=== PATIENT | female | born 1955 | race Caucasian/White ===

== ENCOUNTER 2018-03-16 02:02 | Outpatient (CLI) | payer BC, SELFPAY ==
[2018-03-16 10:19] LABS: Hemoglobin A1C 8.3 % (4.5-6.2)
== END 2018-03-16 02:22 ==
PROVIDERS: PCP Family Medicine; Visit Provider Family Medicine
DX: E11.65 Type 2 diabetes mellitus with hyperglycemia (principal)
CPT/HCPCS: 36415; 83036

== ENCOUNTER 2018-06-13 05:17 | Outpatient (CLI) | payer BC, SELFPAY ==
[2018-06-13 08:58] LABS: Hemoglobin A1C 8.1 % (4.5-6.2)
== END 2018-06-13 05:37 ==
PROVIDERS: PCP Family Medicine; Visit Provider Family Medicine
DX: E11.9 Type 2 diabetes mellitus without complications (principal)
CPT/HCPCS: 36415; 83036

== ENCOUNTER 2018-07-18 13:51 | Emergency (ER) | payer BC, SELFPAY ==
[2018-07-18 14:00] VITALS: BP 165/75; PULSE 74; RESP 16; TEMP 37; O2SAT 100
[2018-07-18] MEDS: Normal Saline 1,000 ML 1000 ML IV (14:20)
[2018-07-18 14:38] LABS: Abs Immature Grans 0.02 k/cumm (0.0-0.09); Absolute Basophil Count 0.03 k/cumm (0.0-0.2); Absolute Lymphocyte Count 1.35 k/cumm (1.2-3.4); Absolute Monocyte Count 0.32 k/cumm (0.11-0.7); Absolute Neutrophil Count 7.22 k/cumm (1.2-6.7); Basophils % 0.3; Eosinophils % 1.1; HCT 40.6 % (36.0-46.0); HGB 13.8 g/dL (12.0-15.5); Immature Grans % 0.2; Lymphocytes % 14.9; Mean Corpuscular Hemoglobin 29.3 pg (27.0-33.0); Mean Corpuscular Volume 86.2 fL (80-95); Mean Platelet Volume 10.6 fL (8.0-11.0); Monocytes % 3.5; Platelet Count 265 x1000/uL (130-400); RBC 4.71 m/cumm (4.00-5.20); RBC Distribution Width 12.7 % (11.7-14.6); White Blood Cell Count 9.04 k/cumm (4.4-10.8)
[2018-07-18 14:45] LABS: ALT 30 U/L (12-78); AST 19 U/L (15-37); Albumin 4.1 g/dL (3.4-5.0); Alkaline Phosphatase 112 U/L (46-116); Anion Gap 10.1 mmol/L (3-11); BUN 18 mg/dL (7-18); Bilirubin, Total 0.3 mg/dL (0.2-1.0); CO2 29.9 mmol/L (21.0-32.0); CREATININE 1.16 mg/dL (0.55-1.02); Calcium 9.6 mg/dL (8.5-10.1); Chloride 104 mmol/L (98-107); Estimated GFR 47.03 (mL/min/1.73m2); Glucose 143 mg/dL (70-100); Potassium 3.1 mmol/L (3.5-5.1); Sodium 144 mmol/L (136-145); Total Protein 8.1 g/dL (6.4-8.2)
[2018-07-18] MEDS: Ondansetron 4 MG/2 ML VIAL IVP (14:54)
[2018-07-18] MEDS: Potassium Chloride 20 MEQ TABCR 40 MEQ PO (15:19)
[2018-07-18 15:25] LABS: Lipase 187 U/L (73-393)
--- NOTE | 2018-07-18 16:00 | ED.GENADUL_ITS ---
Discharge Plan Disposition Patient Disposition: HOME Condition: Good Discharge Details Chief Complaint: Nausea/Vomit/Diar Clinical Impression: Gastroenteritis, Nausea & vomiting, Acute hypokalemia Primary Care Provider: Beatrice Richards ED Provider: Justin Colon Home Meds and New Rx's Prescriptions: New potassium chloride 20 mEq tablet extended release 20 meq PO DAILY Qty: 5 RF: 0 metoclopramide HCl 5 mg tablet 5 mg PO ONCE Qty: 5 RF: 0 No Action acetaminophen [Tylenol Extra Strength] 500 MG tablet 500 mg PO DAILY RF: 0 glimepiride [Amaryl] 2 MG tablet 1 - 2 tab PO BID Qty: 90 RF: 11 metformin 1,000 MG tablet 1,000 mg PO BID Qty: 60 RF: 11 losartan-hydrochlorothiazide 1 EACH tablet 1 tab-cap PO DAILY Qty: 30 RF: 11 atorvastatin 40 MG tablet 40 mg PO HS Qty: 30 RF: 11 blood sugar diagnostic [Blood Glucose Test] 1 EACH strip 1 ea Miscellaneous BID Qty: 100 RF: 6 lancets 1 EACH misc 1 ea Miscellaneous BID Qty: 100 RF: 11 omeprazole 20 MG capsule,delayed release(DR/EC) 20 mg PO QAM Qty: 30 RF: 11 donepezil 5 MG tablet 5 mg PO DAILY RF: 0 mometasone [Nasonex] 17 GM spray,non-aerosol 2 spray NS DAILY Qty: 1 RF: 0 prochlorperazine maleate [Compazine] 10 MG tablet 10 mg PO Q8H PRN (Reason: Nausea / Vomiting) Qty: 8 RF: 0 lisinopril 2.5 MG tablet 1 tab PO DAILY RF: 0 Centrum Silver Women 1 EACH tablet 1 tab PO DAILY RF: 0 Discharge Instructions Instructions: Hypokalemia (ED), Acute Nausea and Vomiting (ED) Additional Instructions: Please take the Zofran as needed. Please drink 10-12 cups of water per day. If you notice any worsening of your symptoms, or any new symptoms such as worsening or persist vomiting, abdominal pain, blood in your vomit, diarrhea, fever, chills, shortness of breath, chest pain, numbness, weakness, or fainting , please return immediately to the emergency department for reevaluation. Please follow up with your primary care provider as soon as possible for reassessment and reevaluation. As always, it was a pleasure participating in your medical care today. Referrals: Beatrice Richards [Primary Care Provider] - Discharge Data Discharge Date/Time-TO BE ENTERED AT DEPARTURE: 07/18/18 16:48 Medical Decision Making This is a pleasant 62-year-old female who presents with signs and symptoms clinically consistent with viral gastroenteritis. She has had 8 episodes of vomiting since this morning. She has had no associated red flags of abdominal pain, tenderness, or hematemesis or diarrhea. No recent antibiotic use. She does have sick contacts with similar symptoms. Physical exam is reassuring with no signs of an acute surgical abdomen. Laboratory workup demonstrates no white count or bandemia, electrolytes demonstrate a slightly low potassium at 3.1. No other significant abnormalities, lipase is normal. The patient was rehydrated with a liter of normal saline, she was given Zofran and she tolerated this well. Patient has been able to tolerate p.o. fluids since then, and has had a resolution of her symptoms and is feeling much better. I did discuss further imaging, as well as the low likelihood for any acute process in the abdomen the patient does not want any additional imaging at this time. Patient is requesting discharge home. Feel this appropriate at this time with a reassuring laboratory workup, reassuring vital signs and a benign exam showing no acute process. Patient will be discharged home with Reglan secondary to her QT of 450. We discussed red flags for which to return, the importance of close follow-up, and the importance of return if she has any abdominal pain, worsening of her symptoms, or signs of dehydration. I have extensively reviewed the treatment plan and discharge instructions with the patient and their family. I have addressed all patient concerns at this time. The patient and family was made aware of what symptoms to monitor for that would warrant a return to the emergency department. Discussed the plan with the patient and family, they demonstrate verbal understanding and agreement with our assessment and plan at this time. HPI General Date/Time Provider Initiated Documentation: 07/18/18 14:38 . HPI Narrative: This is a 62-year-old female with no significant past medical history except for diabetes who presents today for vomiting. Vomiting began this morning. She has had 8 episodes. Is not directly correlated with food. She is able to keep some fluids down. She denies any significant diarrhea, hematochezia, melena, acholic stool or hematemesis. She denies any abdominal pain, abdominal cramping. She does admit to other sick contacts with similar symptoms. Patient denies any previous abdominal surgeries. She has no other complaints at this time. No other modifying factors. Related Data Home Medications Medication Instructions Recorded Confirmed acetaminophen [Tylenol Extra 500 mg PO DAILY 09/16/12 07/18/18 Strength] glimepiride [Amaryl] 1 - 2 tab PO BID #90 tab 04/18/15 07/18/18 losartan-hydrochlorothiazide 1 tab-cap PO DAILY #30 tab-cap 09/23/15 07/18/18 metformin 1,000 mg PO BID #60 tab-cap 09/23/15 07/18/18 atorvastatin 40 mg PO HS #30 tab-cap 10/10/15 07/18/18 blood sugar diagnostic [Blood #100 strip 10/10/15 Glucose Test] lancets #100 ea 10/10/15 omeprazole 20 mg PO QAM #30 tab-cap 10/10/15 07/18/18 donepezil 5 mg PO DAILY 08/22/17 07/18/18 mometasone [Nasonex] 2 spray NS DAILY #1 bottle 08/22/17 07/18/18 prochlorperazine maleate 10 mg PO Q8H PRN #8 tablet 08/27/17 07/18/18 [Compazine] lisinopril 1 tab PO DAILY 09/13/17 07/18/18 nkdownou-see-alnq-FA-lutein 1 tab PO DAILY 09/13/17 07/18/18 [Centrum Silver Women Tablet] metoclopramide HCl 5 mg PO ONCE #5 tab 07/18/18 potassium chloride 20 meq PO DAILY #5 tab 07/18/18 Previous Rx's Medication Instructions Recorded mometasone [Nasonex] 2 spray NS DAILY #1 bottle 08/22/17 prochlorperazine maleate 10 mg PO Q8H PRN #8 tablet 08/27/17 [Compazine] metoclopramide HCl 5 mg PO ONCE #5 tab 07/18/18 potassium chloride 20 meq PO DAILY #5 tab 07/18/18 Allergies Allergy/AdvReac Type Severity Reaction Status Date / Time apple Allergy Severe Anaphylaxsi Unverified 07/18/18 14:02 s lisinopril AdvReac cough Unverified 07/18/18 14:02 General Stated Complaint: Nausea/Vomit/Diar VENECIA: 3 Review of Systems Review of Systems All systems reviewed & are unremarkable except as noted in HPI and below PFSH Surgical History Dilation and curettage (~09/2009) Extraction of cataract (~04/2007) Family History Mother Diabetes Essential hypertension Personal history of malignant neoplasm Heart disease Hyperlipidemia Stroke Father Diabetes Essential hypertension Hyperlipidemia Stroke Sister Diabetes Essential hypertension Heart disease Hyperlipidemia Sister Essential hypertension Hyperlipidemia Grandfather Personal history of malignant neoplasm Heart disease Grandfather Essential hypertension Heart disease Hyperlipidemia Grandmother Diabetes Essential hypertension Hyperlipidemia Grandmother Diabetes Essential hypertension Personal history of malignant neoplasm Hyperlipidemia Social History Smoking/Tobacco Use Status: Never History History Para 2 Hx # Term Pregnancies Multiple births Hx # Pregnancies Ectopic pregnancies AB induced Hx Number of Living Children AB spontaneous Exam Narrative Exam Narrative: 1.Const: Well-nourished, Well-developed, appearing stated age 2.Eyes: PERRL, no conjunctival injection, and symmetrical lids. 3.ENT: Atraumatic external nose and ears. Dry MM. Neck: Symmetric, trachea midline, No thyromegaly. 4.CVS: +S1/S2, No murmurs or gallops. Peripheral pulses 2+ and equal in all extremities. Brisk capillary refill in all extremities. 5.RESP: Unlabored respiratory effort. Clear to auscultation bilaterally. No wheezes rales or rhonchi 6.GI: Soft, Nontender/Nondistended, No hepatosplenomegaly. No guarding or rebound. No pain at McBurney's point, negative Peterson sign. No flank tenderness. 7.MSK: Normocephalic/Atraumatic, Extremities w/o deformity or ttp No cyanosis or clubbing, Normal movement of all extremities 8.Skin: Warm, Dry. No rashes or lesions. 9.Neuro: shank paperer II-XII grossly intact. Sensation grossly intact, no focal neurologic deficits. 10.Psych: (AAO) x3. Appropriate mood and affect Course Vital Signs Temperature 37 C 07/18/18 14:00 Pulse 74 07/18/18 14:00 Respiratory Rate 16 07/18/18 14:00 Blood Pressure 165/75 H 07/18/18 14:00 Pulse Oximetry 100 07/18/18 14:00 Temperature 37 C 07/18/18 14:00 Temperature Source Skin 07/18/18 14:00 Pulse 74 07/18/18 14:00 Respiratory Rate 16 07/18/18 14:00 Respiratory Effort Non-Labored 07/18/18 14:00 Blood Pressure 165/75 H 07/18/18 14:00 Blood Pressure Position Sitting 07/18/18 14:00 Pulse Oximetry 100 07/18/18 14:00 Oxygen Delivery Method Room Air 07/18/18 14:00 Oxygen Flow Rate 0 07/18/18 14:00 Pain Level 0 07/18/18 14:00 Lab/Test Results Lab/Test Results: Laboratory Tests Range/Units 07/18/18 07/18/18 07/18/18 14:20 14:20 14:20 WBC (4.4-10.8) k/cumm 9.04 RBC (4.00-5.20) m/cumm 4.71 Hgb (12.0-15.5) g/dL 13.8 Hct (36.0-46.0) % 40.6 MCV (80-95) fL 86.2 MCH (27.0-33.0) pg 29.3 MCHC (32.0-36.0) g/dL 34.0 RDW (11.7-14.6) % 12.7 Plt Count (130-400) x1000/uL 265 MPV (8.0-11.0) fL 10.6 Immature Gran % 0.2 Neutrophils % 80.0 Lymphocytes % 14.9 Monocytes % 3.5 Eosinophils % 1.1 Basophils % 0.3 Absolute Neutrophils (1.2-6.7) k/cumm 7.22 H Absolute Lymphocytes (1.2-3.4) k/cumm 1.35 Absolute Monocytes (0.11-0.7) k/cumm 0.32 Absolute Eosinophils (0.0-0.7) k/cumm 0.10 Absolute Basophils (0.0-0.2) k/cumm 0.03 Sodium (136-145) mmol/L 144 Potassium (3.5-5.1) mmol/L 3.1 L Chloride (98-107) mmol/L 104 Carbon Dioxide (21.0-32.0) mmol/L 29.9 Anion Gap (3-11) mmol/L 10.1 BUN (7-18) mg/dL 18 Creatinine (0.55-1.02) mg/dL 1.16 H Estimated GFR/1.73 m2 (mL/min/1.73m2) 47.03 Glucose (70-100) mg/dL 143 H Calcium (8.5-10.1) mg/dL 9.6 Total Bilirubin (0.2-1.0) mg/dL 0.3 AST (15-37) U/L 19 ALT (12-78) U/L 30 Alkaline Phosphatase (46-116) U/L 112 Total Protein (6.4-8.2) g/dL 8.1 Albumin (3.4-5.0) g/dL 4.1 Lipase (73-393) U/L 187
[2018-07-18] MEDS: Ondansetron O.D.T. 4 MG TABEF PO (16:34)
[2018-07-18 16:48] VITALS: BP 147/74; PULSE 68; RESP 16; TEMP 37; O2SAT 99
== END 2018-07-18 16:48 | disposition home or self-care (01) ==
PROVIDERS: Emergency Provider Student in an Organized Health Care Education/Training Program; PCP Family Medicine
DX: K52.9 Noninfective gastroenteritis and colitis, unspecified (principal); R11.0 Nausea; E87.6 Hypokalemia; I10 Essential (primary) hypertension; E11.9 Type 2 diabetes mellitus without complications; Z79.84 Long term (current) use of oral hypoglycemic drugs
CPT/HCPCS: 36415; 80053; 83690; 96361; 96374; 99284; 85025; J2405

== ENCOUNTER 2018-09-20 01:41 | Outpatient (CLI) | payer BC, SELFPAY ==
--- NOTE | 2018-09-20 13:38 | DI.MAMMO_ITS ---
SYMPTOMS/DIAGNOSIS: SCREENING, Z12.31, GENERAL MEDICAL EXAM, Z00.00 MAMMOGRAMS: Mammograms were interpreted according to the usual protocol including computer analysis with CAD system, tomosynthesis and C view imaging. Comparison is with the prior examinations. No suspicious masses or microcalcifications are seen. There is no definite evidence of malignancy. IMPRESSION: Negative mammogram. Routine screening is recommended. Category 1, breast density A. MQSA ASSESSMENT OF FINDINGS: Negative. Category 1. Patient will receive a letter notifying them of these results. BI-RAD category A. The breasts are almost entirely fatty.
== END 2018-09-20 02:01 ==
PROVIDERS: PCP Family Medicine; Visit Provider Family Medicine
DX: Z00.00 Encounter for general adult medical examination without abnormal findings (principal); Z12.31 Encounter for screening mammogram for malignant neoplasm of breast
CPT/HCPCS: 77063; 77067

== ENCOUNTER 2018-12-16 03:03 | Outpatient (CLI) | payer OTHER, SELFPAY ==
[2018-12-16 10:40] LABS: Hemoglobin A1C 7.7 % (4.5-6.2)
[2018-12-16 11:24] LABS: ALT 29 U/L (12-78)
== END 2018-12-16 03:23 ==
PROVIDERS: PCP Family Medicine; Visit Provider Family Medicine
DX: E11.65 Type 2 diabetes mellitus with hyperglycemia (principal); E78.00 Pure hypercholesterolemia, unspecified
CPT/HCPCS: 36415; 83036; 84460

== ENCOUNTER 2019-03-17 03:51 | Outpatient (CLI) | payer OTHER, SELFPAY ==
[2019-03-17 13:06] LABS: Hemoglobin A1C 7.6 % (4.5-6.2)
== END 2019-03-17 04:11 ==
PROVIDERS: PCP Family Medicine; Visit Provider Family Medicine
DX: E53.8 Deficiency of other specified B group vitamins (principal); E11.9 Type 2 diabetes mellitus without complications
CPT/HCPCS: 36415; 83036

== ENCOUNTER 2019-06-28 01:17 | Outpatient (CLI) | payer OTHER, SELFPAY ==
[2019-06-28 08:59] LABS: Absolute Basophil Count 0.04 k/cumm (0.0-0.2); Absolute Eosinophil Count 0.15 k/cumm (0.0-0.7); Absolute Lymphocyte Count 1.53 k/cumm (1.2-3.4); Absolute Monocyte Count 0.37 k/cumm (0.11-0.7); Absolute Neutrophil Count 5.09 k/cumm (1.2-6.7); Basophils % 0.6; Eosinophils % 2.1; HCT 41.2 % (36.0-46.0); HGB 13.5 g/dL (12.0-15.5); Lymphocytes % 21.3; Mean Corp. HGB Concentration 32.8 g/dL (32.0-36.0); Mean Corpuscular Hemoglobin 29.3 pg (27.0-33.0); Mean Corpuscular Volume 89.6 fL (80-95); Mean Platelet Volume 10.4 fL (8.0-11.0); Monocytes % 5.2; Neutrophils % 70.8; Platelet Count 290 x1000/uL (130-400); RBC Distribution Width 13.3 % (11.7-14.6); White Blood Cell Count 7.18 k/cumm (4.4-10.8)
[2019-06-28 09:36] LABS: Hemoglobin A1C 7.7 % (4.5-6.2)
[2019-06-28 10:27] LABS: BUN 24 mg/dL (7-18); CREATININE 1.11 mg/dL (0.55-1.02); Calcium 9.9 mg/dL (8.5-10.1); Chloride 107 mmol/L (98-107); Estimated GFR 49.33 (mL/min/1.73m2); Glucose 92 mg/dL (74-106); Potassium 3.6 mmol/L (3.5-5.1); Sodium 145 mmol/L (136-145)
[2019-06-28 11:42] LABS: Vitamin D 25 Total 37.7 ng/ml (30-100)
[2019-06-28 13:36] LABS: COMMENT (LAB VIEW ONLY) 98.21 mg/dL; Microalb ug/mg Crea 9.3 ug/mg Cr
== END 2019-06-28 01:37 ==
PROVIDERS: PCP Family Medicine; Visit Provider Family Medicine
DX: E11.9 Type 2 diabetes mellitus without complications (principal); I10 Essential (primary) hypertension; E78.00 Pure hypercholesterolemia, unspecified; M85.88 Other specified disorders of bone density and structure, other site
CPT/HCPCS: 36415; 80048; 82306; 82043; 82570; 83036; 85025

== ENCOUNTER 2019-09-07 23:21 | Emergency (ER) | payer OTHER, SELFPAY ==
[2019-09-07 23:24] VITALS: BP 134/66; PULSE 63; RESP 20; TEMP 36.3; O2SAT 100
--- NOTE | 2019-09-07 23:41 | ED.GENADUL_ITS ---
Discharge Plan Disposition Patient Disposition: HOME Condition: Good Discharge Details Chief Complaint: Nausea/Vomit/Diar Clinical Impression: Dehydration Primary Care Provider: Beatrice Richards ED Provider: Ghassan Ambrose Meds and New Rx's Prescriptions: Continued acetaminophen [Tylenol Extra Strength] 500 MG tablet 500 mg PO DAILY RF: 0 atorvastatin 40 MG tablet 20 mg PO HS Qty: 30 RF: 11 (DME) blood sugar diagnostic [Blood Glucose Test] 1 EACH strip 1 ea Miscellaneous BID Qty: 100 RF: 6 (DME) lancets 1 EACH misc 1 ea Miscellaneous BID Qty: 100 RF: 11 donepezil 5 MG tablet 5 mg PO DAILY RF: 0 Centrum Silver Women 1 EACH tablet 1 tab PO DAILY RF: 0 Lantus U-100 Insulin 100 unit/mL Solution 20 unit SUBCUT QAM RF: 0 Discharge Instructions Additional Instructions: You seem to have become a little dehydrated from the colonoscopy prep and the related vomiting. Sugar seems to be fine now. He should be good to report to [facility] in the morning for your procedure. Return to ED for syncope, chest pain, shortness of breath, abdominal pain, other concerns or problems. Referrals: Beatrice Richards [Primary Care Provider] - Medical Decision Making Patient here with weakness and episode of hypoglycemia while doing prep for colonoscopy. Sugar currently up over 150 by fingerstick here. Vitals normal. However, will place an IV and give a liter of fluid with some Zofran and check BMP. Patient blood sugar now 175. She is on Lantus and only takes it in the morning so she should be fine from a glucose standpoint. Potassium a little low and we will replace with 10 mEq IV. She is feeling much better. Her nausea is resolved. She should be okay to go home get some rest and go to [facility] for colonoscopy in the morning. She is not using her Lantus until after the procedure. Patient and comfortable with plan. Lab Data Lab results reviewed: Yes I reviewed the patient's lab results. HPI General Mode of arrival: ambulatory . Date/Time Provider Initiated Documentation: 09/07/19 23:38 . Limitations to Documentation: no limitations . Information obtained by: patient, family and RN notes reviewed . HPI Narrative: Patient here for evaluation after becoming weak and lightheaded with low blood sugar this evening. Patient is a diabetic who is on insulin. She is due for colonoscopy tomorrow morning. She has been doing the prep today and is supposed to be n.p.o. after midnight. She developed some nausea and vomiting in addition to all the liquidy stools she has been having. found her kneeling on the floor over her bed weak with complaints of cramps in her legs. He checked her sugar and it was in the 50s. He gave her some [place] and called EMS. On their arrival she was feeling much better. Her blood sugar was up over 100. She refused transport. However brought her in by private vehicle for evaluation. Related Data Home Medications Medication Instructions Recorded Confirmed acetaminophen [Tylenol Extra 500 mg PO DAILY 09/16/12 07/18/18 Strength] atorvastatin 20 mg PO HS #30 tab-cap 10/10/15 09/07/19 blood sugar diagnostic [Blood #100 strip 10/10/15 Glucose Test] lancets #100 ea 10/10/15 donepezil 5 mg PO DAILY 08/22/17 09/07/19 Centrum Silver Women 1 tab PO DAILY 09/13/17 09/07/19 Lantus U-100 Insulin 20 unit SUBCUT QAM 09/07/19 09/07/19 Allergies Allergy/AdvReac Type Severity Reaction Status Date / Time apple Allergy Severe Anaphylaxsi Unverified 09/07/19 23:39 s lisinopril AdvReac cough Unverified 09/07/19 23:39 General Stated Complaint: Nausea/Vomit/Diar VENECIA: 3 Review of Systems Narrative: As documented in HPI otherwise negative as below. Const: no fever, chills Resp: no cough, SOB, pleuritic pain CV: no CP, diaphoresis, edema, syncope GI: no abdominal pain Neuro: no headache, numbness, focal weakness, confusion [facility] Medical History Essential hypertension (Chronic 05/04/13) Hyperlipidemia (Chronic 09/16/12) Poorly controlled type 2 diabetes mellitus (Chronic) Surgical History Dilation and curettage (~09/2009) Extraction of cataract (~04/2007) Family History Mother Diabetes Essential hypertension Personal history of malignant neoplasm PANCREATIC/SUSPECT COLON Heart disease Hyperlipidemia Stroke Father Diabetes Essential hypertension Hyperlipidemia Stroke Sister Diabetes Essential hypertension Heart disease Hyperlipidemia Sister Essential hypertension Hyperlipidemia Grandfather Personal history of malignant neoplasm LUNG Heart disease Grandfather Essential hypertension Heart disease Hyperlipidemia Grandmother Diabetes Essential hypertension Hyperlipidemia Grandmother Diabetes Essential hypertension Personal history of malignant neoplasm STOMACH? Hyperlipidemia Social History Smoking/Tobacco Use Status: Never Alcohol Intake: never Drug use: Never Do you feel safe in your relationship?: Yes History History Para 2 Hx # Term Pregnancies Multiple births Hx # Pregnancies Ectopic pregnancies AB induced Hx Number of Living Children AB spontaneous Exam Narrative Exam Narrative: Vitals: Afebrile with normal vital signs and room air pulse oximetry. Const: WDWN female in NAD. HEENT: NC/AT. Normal facial exam. Eyes: Normal conjunctiva and sclera. Neck: Supple. Trachea midline. Lungs: Normal respiratory effort. Lungs are clear. Cor: RRR without murmur/gallop. Good radial pulses. GI: Soft. NT/ND. No guarding or rebound. Neuro: A+O x 3. Normal speech, mentation, gait. Cranial nerves II - XII grossly intact. No gross motor or sensory deficit. Ext: No C/C/E. Skin: Warm and dry without rash. Course Vital Signs Vital signs: Vital Signs Temperature 97.3 F L 09/07/19 23:24 Pulse 63 09/07/19 23:24 Respiratory Rate 09/07/19 23:24 Blood Pressure 134/66 09/07/19 23:24 Pulse Oximetry 100 09/07/19 23:24 Temperature 97.3 F L 09/07/19 23:24 Pulse 63 09/07/19 23:24 Respiratory Rate 20 09/07/19 23:24 Respiratory Effort 09/07/19 23:24 Blood Pressure 134/66 09/07/19 23:24 Pulse Oximetry 100 09/07/19 23:24 Oxygen Delivery Method Room Air 09/07/19 23:24 Oxygen Flow Rate 0 09/07/19 23:24 Pain Level 0 09/07/19 23:24
[2019-09-08] MEDS: Lactated Ringers 1,000 ML 1000 ML IV (00:04)
[2019-09-08] MEDS: Ondansetron 4 MG/2 ML VIAL IVP (00:05)
[2019-09-08 00:24] LABS: Anion Gap 14.8 mmol/L (3-11); BUN 16 mg/dL (7-18); CO2 21.2 mmol/L (21.0-32.0); CREATININE 1.33 mg/dL (0.55-1.02); Chloride 101 mmol/L (98-107); Estimated GFR 40.04 (mL/min/1.73m2); Glucose 175 mg/dL (74-106); Potassium 3.2 mmol/L (3.5-5.1); Sodium 137 mmol/L (136-145)
[2019-09-08] MEDS: POTASSIUM CHLORIDE 10 MEQ/100 ML BAG 100 MEQ IVPB (00:38)
[2019-09-08 01:00] VITALS: BP 154/80; PULSE 71; RESP 16; O2SAT 100
[2019-09-08] MEDS: Lactated Ringers 1,000 ML 200 ML IV (01:17)
[2019-09-08 02:00] VITALS: BP 154/80; PULSE 71; RESP 16; O2SAT 100
== END 2019-09-08 01:55 | disposition home or self-care (01) ==
PROVIDERS: Emergency Provider Emergency Medicine; PCP Family Medicine
DX: E86.0 Dehydration (principal); E11.649 Type 2 diabetes mellitus with hypoglycemia without coma; Z79.4 Long term (current) use of insulin; E87.6 Hypokalemia; R42 Dizziness and giddiness; T47.4X5A Adverse effect of other laxatives, initial encounter; I10 Essential (primary) hypertension
CPT/HCPCS: 36415; 36416; 80048; 82962; 96361; 96365; 96375; 99284; J2405; J3480

== ENCOUNTER 2020-04-15 01:46 | Outpatient (CLI) | payer OTHER, SELFPAY ==
--- NOTE | 2020-04-15 10:00 | NS.NUTBLAN_ITS ---
ASSESSMENT: Lala presents for diet education r/t weight loss and some DM edu. Her José Miguel accompanied her to the appt due to her memory loss issues. She is 115lbs at this time w/ reporting UBW of 130lbs w/ ~ 20 lb weight loss in 2 mos. help with diet hx and reviewed typical breakfast , lunch and supper meals w/ this RD. The amounts and types of foods were not meeting her caloric intake needs which are [id number] k/pérez/day to achieve weight gain with goal within 10% UBW. She has dx DM2 and is on insulin. She uses her glucometer with her helping to track sugar levels. Last A1c was 6.8% (02/23/20) with BG 149. states that he does not like cooking but tries to prepare meals the best he can. They go to [employer] restaurant in [place] for meals and was able to recall types of meals Lala typically eats there. INTERVENTION: Worked with Lala and her to calculate nutritional needs for daily k/cals, Pro and fluids. Reviewed CHO counting techniques and demonstrated carbs and cals phone millicent to help with caloric intake and facilitate </= 60g/CHO per meal period to help w/ BG levels. explained concept of pairing Pro w/ CHO to mitigate BG spikes. Discussed food choices and portion sizes. Recommended Glucerna 237 ml BID at 10a and 2p to max intake. Discussed cooking and food purchasing options to help with cooking skills and challenges for who prepares the meals.Explained types of CHO and the role of fiber in diet and DM. José Miguel was very meticulous with his note taking and record keeping and provided good support for Lala during this encounter. He was receptive to increasing his cooking knowledge and accepted the contact info for this RD and other suggestions to help with Lala's weight loss and DM issues. PLAN: José Miguel will reach out by email or phone to this RD with questions r/t meal prep, grocery purchasing and restaurant menu selections. He is going to arrange F/U appt for Lala with this RD for further education and review of her progress. He agreed to arrange an appointment for her in one month.
== END 2020-04-15 02:06 ==
PROVIDERS: PCP Family Medicine; Visit Provider Dietitian, Registered
DX: R63.4 Abnormal weight loss (principal); E11.9 Type 2 diabetes mellitus without complications; Z79.4 Long term (current) use of insulin; Z71.3 Dietary counseling and surveillance
CPT/HCPCS: 97802

== ENCOUNTER 2022-10-21 01:48 | Inpatient (IN) | payer MEDICARE, MEDICAID, SELFPAY ==
[2022-10-21] VITALS (36 sets, daily range): BP systolic 119–169; BP diastolic 50–127; PULSE 72–110; RESP 7–22; TEMP 35.9–38.3; O2SAT 91–98
--- NOTE | 2022-10-21 | DI.MRI_ITS ---
Exam(s) MR BRAIN WO EXAM: MR BRAIN WO CLINICAL HISTORY: acute mental status change TECHNIQUE: Multiplanar multisequence MRI of the brain was performed. Images are degraded by motion artifact on all sequences. COMPARISON: CT CT BRAIN NECK CTA from 10/21/2022 FINDINGS: CEREBRAL PARENCHYMA: There is no evidence of intracranial hemorrhage, mass effect, or shift of midline structures. There are no extra-axial fluid collections. Ventricles are not enlarged or shifted. There is no significant focal signal abnormality in the cerebellar hemispheres nor within the cody, m idbrain, and thalami. There are multiple small FLAIR bright foci of white matter signal abnormality the periventricular whi te matter bilaterally, all measuring less than 1 cm. These do not exhibit evidence of hemorrhage nor surrounding edema and no restricted diffusion on DWI. There is no significant focal signal abnormality evident on diffusion imaging to suggest acute ischem ic event. PITUITARY GLAND: No mass nor parasellar abnormality. No obvious abnormality in the cavernous sinuses. FLOW VOIDS: The expected flow void are noted. No evidence of obvious aneurysm nor obvious vascular ma lformation. PARANASAL SINUSES: Retention cyst in the right maxillary sinus noted. No fluid level. IMPRESSION: No significant acute intracranial findings on this noninfused MRI scan of the brain. No evidence of intracranial hemorrhage and no evidence of restricted diffusion to suggest acute ische mary jo event. DATA REPOSITORY:
--- NOTE | 2022-10-21 | DI.RAD_ITS ---
Exam(s) XR WRIST RT COMPLETE EXAM: XR WRIST RT COMPLETE CLINICAL HISTORY: trauma. TECHNIQUE: 2D digital imaging was performed. COMPARISON: No exams were available for comparison FINDINGS: 3 views No evidence of fracture of distal radius and ulna. Mild negative ulnar variance. No obvious scaphoi d fracture. Scapholunate distance normal. However, on the lateral view there is very subtle osteophytic density on the volar aspect of the prox imal carpal row evident. This may be a subtle avulsion fracture at this level. Correlation with sit e of tenderness is recommended. IMPRESSION: As above. DATA REPOSITORY: RADIATION DOSE DELIVERED:
--- NOTE | 2022-10-21 | DI.RAD_ITS ---
Exam(s) XR ELBOW RT COMPLETE EXAM: XR ELBOW RT COMPLETE CLINICAL HISTORY: trauma, pain. TECHNIQUE: 2D digital imaging was performed. COMPARISON: No exams were available for comparison FINDINGS: 3 views No evidence of obvious acute fracture or joint effusion. Radial head and neck appear unremarkable. Cortical irregularity at the medial epicondyle is probably related to epicondylitis. Also similar fi ndings in the lateral epicondyle. Posteriorly there is calcific sliver dorsal to the olecranon which is doubtful for acute fractures there is no overlying soft tissue swelling. IMPRESSION: As above. No obvious acute fractures. No obvious elbow joint effusion. DATA REPOSITORY: RADIATION DOSE DELIVERED:
--- NOTE | 2022-10-21 | DI.RAD_ITS ---
Exam(s) XR SHOULDER RT COMPLETE 2+V EXAM: XR SHOULDER RT COMPLETE 2+V CLINICAL HISTORY: pain. TECHNIQUE: 2D digital imaging was performed. COMPARISON: No exams were available for comparison FINDINGS: Two views: No fracture or dislocation of the humeral head. No subacromial calcifications. Moderate degenerativ e changes noted in the AC joint. There is cortical cortical irregularity on the inferior articular surface of the osseous glenoid note d. Possibly significant. May represent small fracture fragment such as Bankart-type or incidental l oose body. No adjacent right rib fractures and right clavicle appears intact. IMPRESSION: Inferior glenoid fossa finding as described above. Either related to small Bankart-type fracture fra gment or loose body in the superior aspect of the inferior recess of the glenohumeral joint.. DATA REPOSITORY: RADIATION DOSE DELIVERED:
--- NOTE | 2022-10-21 01:30 | RT.EKG_ITS ---
APPROVED REPORT Exam: Resting ECG Reason for Exam: ?cva Patient Location: E HR:90 bpm ECG Measurements Heart Rate 90 AXIS HI [id number] P [id number] QRSd 95 QRS 115 QT 373 T 102 QTc 457 Conclusion Incomplete analysis due to missing data in precordial lead(s) Atrial fibrillation...V-rate 90- 91, irreg A-activity Inferior infarct, acute...ST>0.10mV, T upright, II III aVF likely sinus though motion artifact limits interpretation
--- NOTE | 2022-10-21 01:30 | DI.CT_ITS ---
Exam(s) CT BRAIN NECK CTA EXAM: CT BRAIN NECK CTA CLINICAL HISTORY: ?cva. TECHNIQUE: Imaging Protocol: Axial CT angiography was performed with multi-slice acquisition and mu lti-planar and/or 3D reconstructions. CONTRAST MATERIAL: Intravenous: Omnipaque 350 Contrast volume:structured data in ml COMPARISON: CT ABD PELVIS WO CONTRAST from 09/13/2017 FINDINGS: CTA Neck W: Aortic arch anatomy: The aortic arch anatomy is conventional and there is no significant stenosis at the origin of the great vessels off of the aortic arch. No intimal flap evident. Anterior circulation: Both common carotid arteries ascend with normal luminal diameters. At the level the carotid bulbs and proximal internal carotid arteries there is minimal plaque without hemodynamically significant stenosis evident. Above this level both internal carotid arteries are somewhat tortuous in the upper neck prior to ente ring the skull base-carotid canals. However, there are patent in the skull base. Posterior circulation: Both vertebral arteries originate in conventional fashion off of the subclavian arteries and there is no obvious stenosis at the origin of the vertebral arteries. Both vertebral arteries exhibit normal luminal diameters within the foramen transversarium. No intraluminal thrombus nor dissection evident in the vertebral arteries. At the skull base the left vertebral artery is dominant with thinner contribution from the right vert ebral artery to the formation of the basilar artery. CTA Brain W: Anterior circulation: Both internal carotid arteries are patent in the skull base-carotid canals as well as within the cave rnous sinuses. The supraclinoid aspects of the ICAs are patent. Both A1 segments are patent as are the anterior cer ebral arteries and there is no evidence of aneurysm at the level of the anterior communicating artery . Both middle cerebral arteries are patent with no evidence of significant stenosis nor intraluminal th rombus. There also no aneurysms of these vessels. Posterior circulation: The basilar artery ascends in the midline. Distally it gives off patent bilateral superior cerebella r arteries. Above this level the basilar artery terminates as patent bilateral posterior cerebral arteries. There is no evidence of aneurysm at the tip of the basilar artery nor elsewhere in the [id number]-lx-[id number] is. CT BRAIN: There is no evidence of intracranial hemorrhage, mass effect, or shift of midline structures. There are no extra-axial fluid collections. Ventricles are not enlarged or shifted. There are no ring enh ancing lesions in the brain and no abnormal meningeal enhancement. IMPRESSION: 1. Patent carotid arteries in the neck. No hemodynamically significant stenosis. However, both inte rnal carotid arteries in the upper neck are noted be tortuous prior to entering the skull base. 2. Patent vertebral arteries. 3. Patent intracranial arteries. 4. No ring enhancing lesions in the brain and no abnormal meningeal enhancement. No obvious territor ial infarct. If clinically indicated follow-up MRI with diffusion imaging can be performed for added sensitivity a nd specificity. RADIATION DOSE DELIVERED: 1,992.41mGy.cm Total DLP DATA REPOSITORY: All CT scans at this facility are submitted to the National Radiology Data Registry (NRDR) Dose Index Registry (DIR) with the [employer] ([employer]). RADIATION OPTIMIZATION: All CT scans at this facility use at least one of these dose optimization te chniques: automated exposure control; mA and/or kV adjustment per patient size (includes targeted exa ms where dose is matched to clinical indication); or iterative reconstruction.
[2022-10-21] MEDS: LORazepam 2 MG/ML VIAL 1 MG IVP ×2 (02:00→11:34)
--- NOTE | 2022-10-21 02:03 | ED.GENADUL_ITS ---
Discharge Plan Disposition Patient Disposition: Admit to [facility] Condition: Stable Discharge Details Clinical Impression: Altered mental status Primary Care Provider: Beatrice Richards ED Provider: Dewayne Hill Home Meds and New Rx's Prescriptions: No Action acetaminophen [Tylenol Extra Strength] 500 MG tablet 500 mg PO DAILY Rx Instructions: 2-3 tabs/daily PRN atorvastatin 40 MG tablet 20 mg PO HS Qty: 30 Patient Comments: taking 20 mg by mouth HS Rx Instructions: instead of Simvastatin (DME) blood sugar diagnostic [Blood Glucose Test] 1 EACH strip 1 ea Miscellaneous BID Qty: 100 Rx Instructions: E11.65, on oral meds FOR Freestyle METER (DME) lancets 1 EACH misc 1 ea Miscellaneous BID Qty: 100 Rx Instructions: dx: E11.65, on oral meds Freestyle donepezil 5 MG tablet 5 mg PO DAILY Centrum Silver Women 1 EACH tablet 1 tab PO DAILY Lantus U-100 Insulin 100 unit/mL Solution 20 unit SUBCUT QAM Medical Decision Making 66 yo female with hx of htn, hld, dm, dementia per ems, who comes in from home with altered mental status. Per ems her and her went to bed around 8pm which is her last known normal. Elsie woke up because he heard her moaning and noticed she was not answering questions at all which is abnormal for her and wasn't following commands. EMS arrived and she was awake but not talking, not following commands for them. She would intermittently move her extremities per ems. She arrives with her eyes open looking to the right. She has no signs of trauma to the head. She intermittently will move her legs and has strength enough to cross them and can reach her mouth with her right arm but not her left. She doesn't follow any commands and makes no sounds or words. Her NIH on my exam on arrival is 15 (1 for loc, 2 for month and age, 2 for blink eyes and squeeze hands, 1 for horizontal extraocular movements, left arm motor drift, 1, right arm drift 1, left leg drift 1, right leg drift 1, 3 for language/aphasia, 2 for dysarthria as she is mute), though exam is limited due to her not being able to follow any commands. Suspect cva unfortunately her last known normal was over 4.5 hours ago so is not a lytic candidate. Will obtain cta to evaluate for large vessel occlusion, cbc, cmp, ekg/troponin and reassess. Patient now has no drift, is still aphasic on my exam and won't follow commands. is at bedside, says she normally will say some words when you speak to her, normally isn't oriented to place or time due to dementia per . CTA negative for significant pathology, xray read as air bronchograms in the retrocardiac region can't exclude developing pneumonia but states patient has had no cough and no fevers so doubt pneumonia. Given presentation will admit for obs and possible mri later today for possible cva/tia. Differential Diagnosis Differential Diagnosis: cva, electrolyte abnormality, hemorrhage Imaging Data Radiologic Study: Attestation: I personally reviewed and interpreted this imaging study as follows: Imaging: CT Scan Radiologist's impression: Brain: No definite mass, mass effect, or midline shift. Cerebral ventricles: No ventriculomegaly. Paranasal sinuses: There is a 1.5 cm retention cyst in the right maxillary sinus. Bones/joints: Unremarkable. No acute fracture. Soft tissues: Unremarkable. IMPRESSION: No large vessel stenosis or occlusion. IMPRESSION: 1. Irregular plaque in the post bulbar region of the right extracranial internal carotid artery with mild stenosis by NASCET criteria. 2. Irregular plaque in the post bulbar region of the left extracranial internal carotid artery with no stenosis by NASCET criteria. 3. Patent bilateral vertebral arteries. Radiologic Study #2: Attestation: I personally reviewed and interpreted this imaging study as follows: Imaging: X-Ray Radiologist's impression: PROCEDURE INFORMATION: Exam: XR Chest Exam date and time: 10/21/2022 2:35 AM Age: 66 years old Clinical indication: Other: AMS; Patient HX: ? Aspiration TECHNIQUE: Imaging protocol: Radiologic exam of the chest. Views: 1 view. COMPARISON: CR CHEST 2 VIEWS PA,LAT 09/13/2017 11:23 PM FINDINGS: Tubes, catheters and devices: EKG monitoring leads overlie the thoracic wall. Lungs: There is incomplete lung expansion and crowding of the vascular markings. There are air bronchograms at the left lung base, retrocardiac region. Pleural spaces: No pleural effusion or pneumothorax. Heart/Mediastinum: Normal in size. Bones/joints: No acute fracture is identified. IMPRESSION: Air bronchograms in the retrocardiac region that may represent left basilar atelectasis or in the appropriate clinical setting, developing pneumonia. Lab Data Lab results reviewed: Yes I reviewed the patient's lab results. ECG Data Attestation: I personally reviewed and interpreted this ECG (s) as follows: Prior ECG tracings: not available for review Interpretation: significant motion artifact limits interpretation of first ekg, likely sinus rhythm at a rate of approximately 90 2nd ekg sinus rate of 80, pr 180, no ischemic findings HPI General Mode of arrival: EMS . Date/Time Provider Initiated Documentation: 10/21/22 01:55 . Limitations to Documentation: altered mental status . Information obtained by: EMS . History of Present Illness 66 year old F presents to the emergency department with the chief complaint of altered mental status, described as moderate, Patient started experiencing this unknown and it has been constant. No relieving factors improve symptom(s), No exacerbating factors reported . Patient did receive the following treatments prior to arrival, none Related Data Home Medications Medication Instructions Recorded Confirmed acetaminophen 500 mg tablet 500 mg PO DAILY 09/16/12 07/18/18 (Tylenol Extra Strength) atorvastatin 40 mg tablet 20 mg PO HS #30 tab-caps 10/10/15 09/07/19 blood sugar diagnostic (Blood #100 strips 10/10/15 Glucose Test strips) lancets #100 ea 10/10/15 donepezil 5 mg tablet 5 mg PO DAILY 08/22/17 09/07/19 multivit with 1 tab PO DAILY 09/13/17 09/07/19 ighldxmf-glaw-AI-lutein 8 mg iron-400 mcg-300 mcg tablet (Centrum Silver Women) insulin glargine 100 unit/mL 20 unit subcut QAM 09/07/19 09/07/19 subcutaneous solution (Lantus U-100 Insulin) Allergies Allergy/AdvReac Type Severity Reaction Status Date / Time apple Allergy Severe Anaphylaxsi Unverified 09/07/19 23:39 s lisinopril AdvReac cough Unverified 09/07/19 23:39 General VENECIA: 3 Review of Systems Unobtainable due to mental status PFSH All Active Problems (Updated 10/21/22 @ 03:50 by Dewayne Hill MD) Dehydration (Acute) Altered mental status (Acute) Poorly controlled type 2 diabetes mellitus (Chronic) Hyperlipidemia (Chronic 09/16/12) Essential hypertension (Chronic 05/04/13) Acute kidney injury (nontraumatic) (Acute) Gastric outlet obstruction (Acute) Lactic acidosis (Acute) Surgical History Dilation and curettage (~09/2009) Extraction of cataract (~04/2007) Family History Mother Diabetes Essential hypertension Personal history of malignant neoplasm PANCREATIC/SUSPECT COLON Heart disease Hyperlipidemia Stroke Father Diabetes Essential hypertension Hyperlipidemia Stroke Sister Diabetes Essential hypertension Heart disease Hyperlipidemia Sister Essential hypertension Hyperlipidemia Grandfather Personal history of malignant neoplasm LUNG Heart disease Grandfather Essential hypertension Heart disease Hyperlipidemia Grandmother Diabetes Essential hypertension Hyperlipidemia Grandmother Diabetes Essential hypertension Personal history of malignant neoplasm STOMACH? Hyperlipidemia Social History Smoking/Tobacco Use Status: Never Smoking risk assessment performed?: Yes Alcohol Intake: never Drug use: Never Do you feel safe in your relationship?: Yes History History Para 2 Hx # Term Pregnancies Multiple births Hx # Pregnancies Ectopic pregnancies AB induced Hx Number of Living Children AB spontaneous Exam Const Orientation: alert HENMT Head: normal to inspection Ears: external ears normal General nose exam: external nose normal Mouth: moist mucous membranes Eyes General: appearance normal, both eyes and all related structures Neck Neck: normal visual inspection Resp Effort & Inspection: normal respiratory effort Cardio Rate: regular rate Skin General skin exam: no rashes or lesions noted Neuro General: patient alert Cranial Nerves: PERRL Extrem General: normal to inspection
--- NOTE | 2022-10-21 02:15 | DI.RAD_ITS ---
Exam(s) XR PORTABLE CHEST AP EXAM: XR PORTABLE CHEST AP CLINICAL HISTORY: ?aspiration. TECHNIQUE: 2D digital imaging was performed. COMPARISON: CR CHEST 2 VIEWS PA,LAT from 09/13/2017 FINDINGS: Single AP portable view. Heart size is upper normal. The mediastinum is not widened. Lungs are clear. No infiltrates nor obvious pleural effusions. IMPRESSION: No acute pulmonary findings on this single AP portable view of the chest. DATA REPOSITORY: RADIATION DOSE DELIVERED:
[2022-10-21] MEDS: Omnipaque 350 MG/ML 100 ML BTL IJ (02:17)
[2022-10-21] MEDS: Normal Saline - Diluent 50 ML VIAL IJ (02:18)
[2022-10-21] MEDS: Ondansetron 4 MG/2 ML VIAL (02:50)
[2022-10-21 03:00] LABS: Source Nasal/Nares
--- NOTE | 2022-10-21 03:00 | RT.EKG_ITS ---
APPROVED REPORT Exam: Resting ECG Reason for Exam: [facility] Patient Location: E HR:80 bpm ECG Measurements Heart Rate 80 AXIS WA 180 P 55 QRSd 89 QRS 32 QT 374 T 20 QTc 432 Conclusion Sinus rhythm...normal P axis, V-rate 60- 99
[2022-10-21 03:03] LABS: Abs Immature Grans 0.47 10^3/uL (0.0-0.06); Absolute Basophil Count 0.07 10^3/uL (0.0-0.2); Absolute Lymphocyte Count 0.92 10^3/uL (1.2-3.4); Absolute Neutrophil Count 12.83 10^3/uL (1.2-6.7); Basophils % 0.5; Eosinophils % 0.5; HCT 39.8 % (36.0-46.0); HGB 13.2 g/dL (11.2-15.7); Immature Grans % 3.2; Lymphocytes % 6.2; MCHC 33.2 % (32.0-36.0); MCV 88 fL (80-95); MPV 10.3 fL (8.0-11.0); Neutrophils % 86.6; Platelet Count 224 10^3/uL (130-400); RBC 4.55 10^6/uL (3.93-5.22); RDW 12.9 % (11.7-14.6); RDW-SD 41.1 fL; WBC 14.82 10^3/uL (4.4-10.8)
[2022-10-21 03:07] LABS: Absolute Eosinophil Count 0.07 10^3/uL (0.0-0.7); Absolute Monocyte Count 0.44 10^3/uL (0.1-0.8)
--- NOTE | 2022-10-21 03:09 | DI.VRAD_ITS ---
PROCEDURE INFORMATION: Exam: CTA Head With Contrast, Arteriography Exam date and time: 10/21/2022 1:45 AM Age: 66 years old Clinical indication: Stroke-like symptoms; Altered mental status/memory loss; Additional info: ? CVA TECHNIQUE: Imaging protocol: Computed tomographic angiography of the head with contrast. Exam focused on the arteries. 3D rendering (Not supervised by radiologist): MIP and/or 3D reconstructed images were created by the technologist. Radiation optimization: All CT scans at this facility use at least one of these dose optimization techniques: automated exposure control; mA and/or kV adjustment per patient size (includes targeted exams where dose is matched to clinical indication); or iterative reconstruction. Contrast material: OMNIPAQUE 350; Contrast volume: 85 ml; Contrast route: INTRAVENOUS (IV); COMPARISON: No relevant prior studies available. FINDINGS: ANTERIOR CIRCULATION: Right internal carotid artery: Intracranial segment is patent with no significant stenosis. No aneurysm. Right middle cerebral artery: No occlusion or significant stenosis. No aneurysm. Right anterior cerebral artery: No occlusion or significant stenosis. No aneurysm. Left internal carotid artery: Intracranial segment is patent with no significant stenosis. No aneurysm. Left middle cerebral artery: No occlusion or significant stenosis. No aneurysm. Left anterior cerebral artery: No occlusion or significant stenosis. No aneurysm. POSTERIOR CIRCULATION: Right vertebral artery: No occlusion or significant stenosis. No aneurysm. Left vertebral artery: No occlusion or significant stenosis. No aneurysm. Basilar artery: No occlusion or significant stenosis. No aneurysm. Right posterior cerebral artery: No occlusion or significant stenosis. No aneurysm. Left posterior cerebral artery: No occlusion or significant stenosis. No aneurysm. Brain: No definite mass, mass effect, or midline shift. Cerebral ventricles: No ventriculomegaly. Paranasal sinuses: There is a 1.5 cm retention cyst in the right maxillary sinus. Bones/joints: Unremarkable. No acute fracture. Soft tissues: Unremarkable. IMPRESSION: No large vessel stenosis or occlusion. PROCEDURE INFORMATION: Exam: CTA Neck With Contrast Exam date and time: 10/21/2022 1:45 AM Age: 66 years old Clinical indication: Stroke-like symptoms; Altered mental status/memory loss; Additional info: ? CVA TECHNIQUE: Imaging protocol: Computed tomographic angiography of the neck with contrast. 3D rendering (Not supervised by radiologist): MIP and/or 3D reconstructed images were created by the technologist. Radiation optimization: All CT scans at this facility use at least one of these dose optimization techniques: automated exposure control; mA and/or kV adjustment per patient size (includes targeted exams where dose is matched to clinical indication); or iterative reconstruction. Contrast material: OMNIPAQUE 350; Contrast volume: 85 ml; Contrast route: INTRAVENOUS (IV); COMPARISON: CR SOFT TISSUE NECK RAD. 08/22/2017 8:37 AM FINDINGS: Right common carotid artery: No significant stenosis. No dissection or occlusion. Right internal carotid artery: Irregular plaque in the post bulbar region of the extracranial segment with mild stenosis. No dissection or occlusion. Right external carotid artery: No occlusion or significant stenosis of the origin. Left common carotid artery: No significant stenosis. No dissection or occlusion. Left internal carotid artery: Irregular plaque in the post bulbar region of the extracranial segment with no significant stenosis. No dissection or occlusion. Left external carotid artery: No occlusion or significant stenosis of the origin. Right vertebral artery: No significant stenosis. No dissection or occlusion. Left vertebral artery: No significant stenosis. No dissection or occlusion. Soft tissues: No significant soft tissue swelling. Bones/joints: No acute fracture. IMPRESSION: 1. Irregular plaque in the post bulbar region of the right extracranial internal carotid artery with mild stenosis by NASCET criteria. 2. Irregular plaque in the post bulbar region of the left extracranial internal carotid artery with no stenosis by NASCET criteria. 3. Patent bilateral vertebral arteries. REFERENCES: NASCET CRITERIA. The degree of stenosis in the cervical segment of the internal carotid artery is based on NASCET criteria. Normal is no stenosis. Mild is less than 50% stenosis. Moderate is 50-69% stenosis. Severe is 70% to 99% stenosis. Total occlusion is no detectable patent lumen. Dictated and Authenticated by: Duran Lara MD. Ordering:ROSEANN Buchanan MD
--- NOTE | 2022-10-21 03:14 | DI.VRAD_ITS ---
PROCEDURE INFORMATION: Exam: XR Chest Exam date and time: 10/21/2022 2:35 AM Age: 66 years old Clinical indication: Other: AMS; Patient HX: ? Aspiration TECHNIQUE: Imaging protocol: Radiologic exam of the chest. Views: 1 view. COMPARISON: CR CHEST 2 VIEWS PA,LAT 09/13/2017 11:23 PM FINDINGS: Tubes, catheters and devices: EKG monitoring leads overlie the thoracic wall. Lungs: There is incomplete lung expansion and crowding of the vascular markings. There are air bronchograms at the left lung base, retrocardiac region. Pleural spaces: No pleural effusion or pneumothorax. Heart/Mediastinum: Normal in size. Bones/joints: No acute fracture is identified. IMPRESSION: Air bronchograms in the retrocardiac region that may represent left basilar atelectasis or in the appropriate clinical setting, developing pneumonia. Dictated and Authenticated by: Duran Lara MD. Ordering:ROSEANN Buchanan MD
[2022-10-21 03:15] LABS: Bilirubin Negative (Negative); Blood Negative (Negative); Clarity Clear (Clear); Glucose Negative (Negative); Ketones Negative (Negative); Leukocyte Esterase Negative (Negative); Nitrite Negative (Negative); Specific Gravity 1.025 (1.005-1.025); Urobilinogen 0.2 mg/dL (Up to 0.2); pH 5.5 (5-8)
[2022-10-21 03:16] LABS: Prothrombin Time 9.7 sec (9.3-11.0)
[2022-10-21 03:21] LABS: *AMPHETAMINES SCREEN URINE Negative (Negative); *BARBITURATES SCREEN URINE Negative (Negative); *BENZODIAZEPINES SCREEN URINE Negative (Negative); Cannabinoids THC Negative (Negative); Cocaine Screen,Urine Negative (Negative); METHADONE URINE SCREEN Negative (Negative); OPIATES URINE SCREEN Negative (Negative)
[2022-10-21 03:23] LABS: ALT 37 U/L (14-59); AST 25 U/L (15-37); Albumin 3.9 g/dL (3.4-5.0); Alkaline Phosphatase 103 U/L (46-116); Anion Gap 9.3 mmol/L (3-11); BUN 14 mg/dL (7-18); Bilirubin, Total 0.4 mg/dL (0.2-1.0); CO2 26.7 mmol/L (21.0-32.0); Calcium 9.3 mg/dL (8.5-10.1); Chloride 103 mmol/L (98-107); Estimated GFR 61.36 (mL/min/1.73m2); Glucose 187 mg/dL (74-106); Magnesium 1.8 mg/dL (1.8-2.4); Potassium 3.7 mmol/L (3.5-5.1); Sodium 139 mmol/L (136-145); Total Protein 7.3 g/dL (6.4-8.2); Troponin I < 50 ng/L (<or=60)
[2022-10-21 03:27] LABS: Tricyclic Antidepressants Negative (Negative)
[2022-10-21 03:28] LABS: ETHANOL BLOOD < 3.0 mg/dL (<10)
[2022-10-21 03:29] LABS: TSH (W/Ref FT4) 12.83 uIU/mL (0.36-3.74)
[2022-10-21 03:33] LABS: COVID-19 PCR Negative (Negative)
[2022-10-21 03:48] LABS: FREE T4 0.99 ng/dL (0.76-1.46)
[2022-10-21 04:06] LABS: Lab Add On Test DONE
[2022-10-21 04:20] LABS: C-Reactive Protein 0.12 mg/dL (0.0-0.3)
[2022-10-21 04:40] LABS: Procalcitonin < 0.1 ng/mL
[2022-10-21] MEDS: Aspirin 300 MG SUPP PR (05:02)
--- NOTE | 2022-10-21 05:13 | HPE_ITS ---
Date of service: 10/21/22 Time of Service: 05:13 Assessment and Plan Assessment and plan (1) Altered mental status: Status: Acute Assessment and plan: unclear as to the events at home but her speech is clear, not dysarthric, she has no drift and no focal limb weakness and no facial asymmetry and she exhibits not CN deficits. I think this may be her baseline dementia w/ perhaps some worsening d/t incipient infection (see pneumonia below). Professional time spent interviewing and examining patient, discussion of goals of care with hospital team (care management, nursing and consulting professiona ls) was 60 minutes. (2) Dementia: (3) Community acquired pneumonia: Status: Acute Assessment and plan: while she may have experienced an aspiration event, her CXR findings and WBC were not d/t any emesis sustained in the ED. I suspect her altered mental status may be d/t subclinical infection. I do agree w/ Vrad interpretation of air bronchograms on the LLL in retrocardiac area and my limited point of care US of her lungs (not a very good exam d/t her poor cooperation) did reveal basilar B lines suggestive of early pneumonia. I did not see any consolidations or pleural effusions. Upper wade had A line pattern. She is not hypoxemia at this point. I would put her on Unasyn which would cover CAP as well as aspiration. I would add doxycycline and check sputum cultures if able to obtain as well as urine antigens for Strep. She is hemodynamically and respiratory stable for med/surg. I will get AGRISCIENCE TEACHER consult and keep NPO until evaluatated, although her mental status seems to have improved since she came to the E.D. and probably could be tried on thickened liquids. (4) Essential hypertension: Status: Chronic (5) Poorly controlled type 2 diabetes mellitus: Status: Chronic Assessment and plan: until safe to take PO, will decrease her basal Lantus to half her normal dose, use low dose sliding scale q6hr and monitor her glucose. will get AGRISCIENCE TEACHER to evaluate both her congnitive speech communication as well as her swallowing abil ity History of Present Illness History of Present Illness Chief Complaint: altered mental status Narrative: 66 yr old female w/ advanced dementia, HTN, HLD, DM II (on insulin), oliguric renal failure in 09/14/17 associated w/ lactic acidosis while on metformin, who lives w/ her . Her baseline function is she talks and responds to him and is oriented to her name but not to place/time/circumstances, and she normally ambulates on her own. Tonight, she went to bed around 8 pm () however her heard moaning during the night but she was not answering him when he questioned what was wrong. When EMS arrived she reportedly was awakd but not talking, not answering questions, she would intermittently move her extremities on her own. Per Dr. Hill's exam on arrival to ED, she was nonverbal, not following commands, NIH scale of 15 (see Dr. Hill's note for details). CTA of head was done state per stroke protocol and demonstrated the following: IMPRESSION: No large vessel stenosis or occlusion. CTA of cervical vessesl was performed and demonstrated the following: IMPRESSION: 1. ? Irregular plaque in the post bulbar region of the right extracranial internal carotid artery with mild stenosis by NASCET criteria. 2. ? Irregular plaque in the post bulbar region of the left extracranial internal carotid artery with no stenosis by NASCET criteria. 3. ? Patent bilateral vertebral arteries. Per nursing, the patient vomited upon return from CT scan. They placed her in the recovery position but are concerned she may have aspirated. CXR was done after this and demonstrated the following: IMPRESSION: Air bronchograms in the retrocardiac region that may represent left basilar atelectasis or in the appropriate clinical setting, developing pneumonia. Her labs on admission did show leukocytosis of 14,000. She is not hypoxemic, SPO2 was 95% on room air when I examined her while she was in the ED. the rest of her labs including her CBC, CMP, troponin I and UA were normal or unremarkable except for TSH of 12.83 (her FT4 was normal at 0.99). Patient is admitted under observation for MRI of the brain to rule out recent CVA vs TIA, however, her mental status change may have just been fluctuation in mental state from her dementia. When I evaluated her in the ED she was verbal and speech was not dysarthric and she was moving all 4 extremities quite well w/ good strength in all her limbs, and her EOMI was intact. She did follow simple commands for me such as take a deep breath (when I was listening to her lungs); the repetoire of her language was limited such as what the hell, jessica, don't do that (her expression when I attempted Babinski test), and oh for God's sake when I attempted to get her to roll over so I could complete my exam. Review of Systems Unobtainable due to mental condition PFSH All Active Problems (Updated 10/21/22 @ 05:45 by Lorenzo Cleary MD) Community acquired pneumonia (Acute) Dehydration (Acute) Altered mental status (Acute) Poorly controlled type 2 diabetes mellitus (Chronic) Hyperlipidemia (Chronic 09/16/12) Essential hypertension (Chronic 05/04/13) Medical History (Updated 10/21/22 @ 05:45 by Lorenzo Cleary MD) Acute kidney injury (nontraumatic) Dementia Lactic acidosis Surgical History Dilation and curettage (~09/2009) Extraction of cataract (~04/2007) Family History Mother Diabetes Essential hypertension Personal history of malignant neoplasm PANCREATIC/SUSPECT COLON Heart disease Hyperlipidemia Stroke Father Diabetes Essential hypertension Hyperlipidemia Stroke Sister Diabetes Essential hypertension Heart disease Hyperlipidemia Sister Essential hypertension Hyperlipidemia Grandfather Personal history of malignant neoplasm LUNG Heart disease Grandfather Essential hypertension Heart disease Hyperlipidemia Grandmother Diabetes Essential hypertension Hyperlipidemia Grandmother Diabetes Essential hypertension Personal history of malignant neoplasm STOMACH? Hyperlipidemia Social History Smoking/Tobacco Use Status: Never Smoking risk assessment performed?: Yes Alcohol Intake: never Drug use: Never Do you feel safe in your relationship?: Yes History History Para 2 Hx # Term Pregnancies Multiple births Hx # Pregnancies Ectopic pregnancies AB induced Hx Number of Living Children AB spontaneous Meds Allergies and Home Medications Allergies Allergy/AdvReac Type Severity Reaction Status Date / Time apple Allergy Severe Anaphylaxsi Unverified 10/21/22 04:32 s lisinopril AdvReac cough Unverified 10/21/22 04:32 Home Medications Medication Instructions Recorded Confirmed Type acetaminophen 500 mg tablet 500 mg PO DAILY 09/16/12 10/21/22 History (Tylenol Extra Strength) atorvastatin 40 mg tablet 20 mg PO HS #30 tab-caps 10/10/15 10/21/22 History blood sugar diagnostic (Blood #100 strips 10/10/15 10/21/22 History Glucose Test strips) lancets #100 ea 10/10/15 10/21/22 History donepezil 5 mg tablet 5 mg PO DAILY 08/22/17 10/21/22 History multivit with 1 tab PO DAILY 09/13/17 10/21/22 History [id number]-[id number]-UR-lutein 8 mg iron-400 mcg-300 mcg tablet (Centrum Silver Women) insulin glargine 100 unit/mL 20 unit subcut QAM 09/07/19 10/21/22 History subcutaneous solution (Lantus U-100 Insulin) lorazepam 0.5 mg tablet mg 10/21/22 10/21/22 History metformin 500 mg tablet mg 10/21/22 10/21/22 History quetiapine 50 mg tablet mg 10/21/22 10/21/22 History sertraline 100 mg tablet mg 10/21/22 10/21/22 History Exam Const General: well developed, combative and well hydrated Nutritional Appearance: average body habitus Orientation: alert, awake, not oriented to place, not oriented to time and confused Limitations: altered mental status and behavioral limitations [facility] [place] Head: normal to inspection, no palpable skull fracture, normocephalic, atraumatic and other (dandruff) Ears: hearing grossly normal bilaterally and external ears normal Face and sinus: normal facial exam and face symmetric Mouth: oral mucosae normal, lip normal and tongue normal Eyes General: appearance normal, both eyes and all related structures Visual Wade: normal visual wade by confrontation Alignment and Position: alignment normal Periorbital: periorbital findings normal Eyelids: eyelids normal Conjunctivae: conjunctivae normal Sclera: sclerae normal Cornea: corneas normal Pupils: PERRL EOM: EOM intact bilaterally Chest Chest: normal inspection of the chest and normal palpation of entire chest wall Resp Effort & Inspection: normal respiratory effort and able to speak in complete sentences Auscultation: diminished lung sounds on the left in the lower lung wade, no rhonchi and no wheezes Cardio Jugular venous pressure: no JVD Palpation: normal PMI Rate: regular rate Rhythm: regular rhythm Heart Sounds: S1 normal, S2 normal, normal, physiologic split S2, no click, no gallops, no murmurs and no rubs Pulses: normal peripheral pulses GI Inspection: normal to inspection Palpation: soft and no hepatosplenomegaly Percussion: normal to percussion Auscultation: normal bowel sounds Back/Spine/Pelvis Back: no CVA tenderness Cervical Spine: normal cervical lordosis Thoracic/Lumbar Spine: thoracic and lumbar spine normal to inspection Skin General skin exam: no rashes or lesions noted, elasticity normal and turgor normal Neuro General: patient alert, patient awake, not oriented x3, tone normal, moves all extremities, normal light touch, pain and propioception, no meningeal signs, no focal motor deficits and CN's II-XI intact bilaterally Cranial Nerves: CN's II-XI intact bilaterally Cognition: abnormal cognition Speech: speech normal Motor: muscle tone normal throughout and strength 5/5 throughout Sensory Exam: no sensory deficits noted DTR's: Rt Triceps: 3+, Lt Triceps: 3+, Rt Biceps: 3+, Lt Biceps: 3+, Rt Brachioradialis: 3+, Lt Brachioradialis: 3+, Rt Patellar: 3+, Lt Patellar: 3+, Rt Ankle: 3+ and Lt Ankle: 3+ Plantar Reflexes: Withdrawal: bilateral Pupils: Normal pupillary reactivity/response: bilateral Extrem General: normal to inspection, full ROM, capillary refill normal, no joint enlargement and no clubbing, cyanosis or edema Results Labs 10/21/22 02:41 10/21/22 02:41 Labs: Laboratory Results - last 24 hr 10/21/22 10/21/22 10/21/22 02:41 02:41 02:41 WBC RBC Hgb Hct MCV MCH MCHC RDW Plt Count MPV Immature Gran % Neutrophils % Lymphocytes % Monocytes % Eosinophils % Basophils % Nucleated RBC % Absolute Neutrophils Absolute Lymphocytes Absolute Monocytes Absolute Eosinophils Absolute Basophils PT INR APTT Sodium 139 Potassium 3.7 Chloride 103 Carbon Dioxide 26.7 Anion Gap 9.3 BUN 14 Creatinine 1.0 Est GFR (CKD-EPI 2020) 61.36 Glucose 187 H Calcium 9.3 Magnesium 1.8 Total Bilirubin 0.4 AST 25 ALT 37 Alkaline Phosphatase 103 Troponin I < 50 C-Reactive Protein Total Protein 7.3 Albumin 3.9 Procalcitonin TSH 12.83 H Free T4 0.99 Urine Color Urine Clarity Urine pH Ur Specific [place] Urine Protein Urine Ketones Urine Blood Urine Nitrite Urine Bilirubin Urine Urobilinogen Ur Leukocyte Esterase Urine Glucose Urine Opiates Screen Urine Methadone Screen Ur Barbiturates Screen Ur Tricyclics Screen Ur Amphetamines Screen U Benzodiazepines Scrn Urine Cocaine Screen Ur THC Screen Ethyl Alcohol < 3.0 COVID-19 Source Nasal/Nares SARS-CoV-2 (PCR) Negative Add-On Test Request 10/21/22 10/21/22 10/21/22 02:41 02:41 02:41 WBC 14.82 H RBC 4.55 Hgb 13.2 Hct 39.8 MCV 88 MCH 29.0 MCHC 33.2 RDW 12.9 Plt Count 224 MPV 10.3 Immature Gran % 3.2 Neutrophils % 86.6 Lymphocytes % 6.2 Monocytes % 3.0 Eosinophils % 0.5 Basophils % 0.5 Nucleated RBC % 0.0 Absolute Neutrophils 12.83 H Absolute Lymphocytes 0.92 L Absolute Monocytes 0.44 Absolute Eosinophils 0.07 Absolute Basophils 0.07 PT 9.7 INR 1.0 APTT 22.0 Sodium Potassium Chloride Carbon Dioxide Anion Gap BUN Creatinine Est GFR (CKD-EPI 2020) Glucose Calcium Magnesium Total Bilirubin AST ALT Alkaline Phosphatase Troponin I C-Reactive Protein Total Protein Albumin Procalcitonin TSH Free T4 Urine Color Urine Clarity Urine pH Ur Specific [place] Urine Protein Urine Ketones Urine Blood Urine Nitrite Urine Bilirubin Urine Urobilinogen Ur Leukocyte Esterase Urine Glucose Urine Opiates Screen Negative Urine Methadone Screen Negative Ur Barbiturates Screen Negative Ur Tricyclics Screen Negative Ur Amphetamines Screen Negative U Benzodiazepines Scrn Negative Urine Cocaine Screen Negative Ur THC Screen Negative Ethyl Alcohol COVID-19 Source SARS-CoV-2 (PCR) Add-On Test Request 10/21/22 10/21/22 10/21/22 02:41 02:41 02:41 WBC RBC Hgb Hct MCV MCH MCHC RDW Plt Count MPV Immature Gran % Neutrophils % Lymphocytes % Monocytes % Eosinophils % Basophils % Nucleated RBC % Absolute Neutrophils Absolute Lymphocytes Absolute Monocytes Absolute Eosinophils Absolute Basophils PT INR APTT Sodium Potassium Chloride Carbon Dioxide Anion Gap BUN Creatinine Est GFR (CKD-EPI 2020) Glucose Calcium Magnesium Total Bilirubin AST ALT Alkaline Phosphatase Troponin I C-Reactive Protein Total Protein Albumin Procalcitonin TSH Free T4 Urine Color Yellow Urine Clarity Clear Urine pH 5.5 Ur Specific [place] 1.025 Urine Protein Negative Urine Ketones Negative Urine Blood Negative Urine Nitrite Negative Urine Bilirubin Negative Urine Urobilinogen 0.2 Ur Leukocyte Esterase Negative Urine Glucose Negative Urine Opiates Screen Urine Methadone Screen Ur Barbiturates Screen Ur Tricyclics Screen Ur Amphetamines Screen U Benzodiazepines Scrn Urine Cocaine Screen Ur THC Screen Ethyl Alcohol COVID-19 Source SARS-CoV-2 (PCR) Add-On Test Request DONE DONE 10/21/22 10/21/22 02:41 02:41 WBC RBC Hgb Hct MCV MCH MCHC RDW Plt Count MPV Immature Gran % Neutrophils % Lymphocytes % Monocytes % Eosinophils % Basophils % Nucleated RBC % Absolute Neutrophils Absolute Lymphocytes Absolute Monocytes Absolute Eosinophils Absolute Basophils PT INR APTT Sodium Potassium Chloride Carbon Dioxide Anion Gap BUN Creatinine Est GFR (CKD-EPI 2020) Glucose Calcium Magnesium Total Bilirubin AST ALT Alkaline Phosphatase Troponin I C-Reactive Protein 0.12 Total Protein Albumin Procalcitonin < 0.1 TSH Free T4 Urine Color Urine Clarity Urine pH Ur Specific [place] Urine Protein Urine Ketones Urine Blood Urine Nitrite Urine Bilirubin Urine Urobilinogen Ur Leukocyte Esterase Urine Glucose Urine Opiates Screen Urine Methadone Screen Ur Barbiturates Screen Ur Tricyclics Screen Ur Amphetamines Screen U Benzodiazepines Scrn Urine Cocaine Screen Ur THC Screen Ethyl Alcohol COVID-19 Source SARS-CoV-2 (PCR) Add-On Test Request Last Vital Signs Temp 35.9 C L 10/21/22 02:38 Pulse 83 10/21/22 04:15 Resp 21 10/21/22 04:20 BP 155/127 H 10/21/22 04:15 Pulse Ox 96 10/21/22 02:38 Time Spent Time spent with Patient: 55-74 minutes Time was spent: preparing to see the patient(eg.review tests), obtaining and/or reviewing separately otained hiistory, ordering medications,tests, procedures, referring, communicating with other health home care nurse (Dr. Hill), indepentently interpreting results and care coordination
[2022-10-21] MEDS: AMPICILLIN/SULBACTAM 3 GM in Normal Saline 100 ML IVPB ×2 (06:43→13:32)
[2022-10-21 08:13] LABS: Troponin I < 50 ng/L (<or=60)
[2022-10-21] MEDS: Normal Saline Flush 10 ML SYR IVP ×3 (09:06→13:32)
[2022-10-21] MEDS: Enoxaparin 40 MG/0.4 ML SYR SC (09:06)
[2022-10-21] MEDS: DOXYCYCLINE 100 MG in Normal Saline 100 ML IVPB (09:06)
--- NOTE | 2022-10-21 09:15 | SP_ITS ---
Date of service: 10/21/22 Time of Service: 10:48 Subjective Clinical (Bedside) Swallow Evaluation and cognitive-communication screening Speech Language Pathology Patient referred for Clinical Swallow Evaluation and Cognitive-Communication Evaluation from Dr Cleary given question of aspiration event, possible CVA, altered mental status. Precautions: Full code, standard, NPO Subjective: Patient was contacted at bedside, repositioned as upright as possible/tolerated, ~70 degrees upright. Patient with consistent left lean despite multiple repositioning assists with RN present, patient cries out in pain with repositioning and holds her R arm though unable to verbalize what hurts or rate her pain. Her hasband is present at the end of visit and provides report of her LOF. Rreports that she eats regular and soft solids foods at baseline without any history of choking episodes, heimlich maneuver, or frequent coughing during meals. She is able to self-feed, he says this is just about the only thing she can do by herself. At home, he typically crushes her medications and puts them into her coffee in the morning and puts them in sugar free pudding in the evening. He states that given whole pills she would spit them out. He Objective Objective Respiratory: Tolerates room air without s/sx dyspnea. Mental status: Oriented to name (First name only), able to confirm correct pronunciation of last name given 2 options. Unable to state if she is in pain or where/how much, but cries out in pain when repositioned, cries out when cold water is spilled on her, etc. Unable to open mouth to receive straw when presented despite saying yes when offered to drink with straw. Speech: Speech output is limited but no overt s/sx dysarthria. Responses are 100% intelligible. Verbal expression: Primarily responds to Yes/No questions, though not reliably (e.g., says NO when offered pudding, but then reaches for the spoon to ask for a bite non-verbally). Responses to open-ended questions are infrequent and when given often nonsensical. Spontaneous verbal productions include occasional word salad (intelligible but nonsensical and seemingly random combinations of words). Auditory comprehension: Does not respond reliably to Y/N questions, does not follow simple 1 step instructions. Requires hand-over hand cueing and naturalistic stimuli to complete target tasks such as taking a bite/sip. Once oriented into a naturalistic task (e.g., taking a sip of water from a cup) she is able to complete this spontaneously, but does not reliable complete task in response to verbal cues. Cranial Nerve Exam: Unable to complete this formally given patient unable to follow instructions or imitate clinician, however not noting overt assymetries or deficits at rest or during conversation and PO intake. Unable to elicit volitional cough, swallow. Naturalistic swallows with thin liquid suggestive of good/fair hyo-laryngeal motility and initiation timing. Voice quality is clear/dry at baseline. Oral-peripheral exam and oral care: Oral care is fair, mucosa pink and mildly dry. Patient with natural dentition in good condition. Partially completed oral care with toothbrush/toothpaste - patient allows BUSINESS PROPOSAL REP to brush front teeth but unable to tolerate further advancement into oral cavity. Refuses to expectorate or attempt swish & spit. Her states that at baseline she completes minimal oral care, will not allow others to brush her teeth and does not brush them in her own. Food items tested: ?? IDDSI 0: x 8-9 sips via cup edge (self-selected, 1-2 sips via tsp clinician-assisted) IDDSI 4: x 5-6 bites pudding Patient refuses any solid food trials. Feeding behaviors: Benefits from hand-over hand and tactile cues to engage in PO intake. Able to self feed with cup edge once oriented to task. Does not accept straw. Self-selected sips are appropriately small, not overly impulsive. Oral phase: Leakage from mouth due primarily to L leaning position while self feeding. No residue, no pocketing with purees. Patient will not accept solid food at this time but per she has no difficulty chewing and swallowing this at home prior to recent events. Pharyngeal phase: Unremarkable. No s/sx aspiration, no voice change. Esophageal phase: Some prolonged belching after limited PO trials. Provided education to: Caregivers, nursing Topics Addressed: Overt s/sx to monitor for re: potential aspiration of food / liquids, recommendations for improved oral care, relationship between respiratory function changes and deglutition, Rationale for recommendations as outlined below Outcome: Verbalized/demonstrated understanding Assessment Impressions: Mild aspiration risk and suspected oral dysphagia primarily due to dementia behaviors. Suspect GERD/esophageal component given extent of belching observed this session. Despite mental status patient appears with good tolerance of thin liquids and purees at this time given max assist for aspiration precautions. 's report is consistent with this. Suspect if her mental status improves further she may be appropriate to trial upgraded solid textures with BUSINESS PROPOSAL REP but at this time she is not accepting anything other than pudding. Will start puree/thin diet. Meds to be crushed or in liquid formulation (suggest pharmacy review of medication formats) as able as patient does not tolerate or accept tablets/capsules at baseline due to dementia status. Suggest to trial suction oral care kits with patient while she is holding a toothbrush for naturalistic cues to see if this improves her tolerance/acceptance of oral care attempts. Regarding cognition, patient is unable to respond to most questions reliably or follow simple, 1-step instructions. Advanced dementia behaviors present and benefiting from implicit/hand-over hand cues. Patient requires full assist for iADL's. Her feels she is at or near baseline. No deficits specifically suggestive of dysarthria or aphasia observed though patient is unable to participate in any structured assessment tasks. Further BUSINESS PROPOSAL REP services: inpatient; pending progress may request BUSINESS PROPOSAL REP ? Instrumentation: N/A unless further concerns identified Suggested Referrals: Consider OT referral for partner/family education regarding ADL's in dementia. Recommendations: Diet Texture Modification(s): IDDSI Level(s) SOLIDS 4-Pureed Solids LIQUIDS 0-Thin Liquids Medication Intake: CRUSHED with 0-Thin Liquids or 4-Extremely Thick Liquids as tolerated Alter medications only as advised by MD or Pharmacist RISK MANAGEMENT: HOB upright as tolerated; upright for all PO intake. Encourage physical mobility as tolerated. Oral hygiene BID/2x per day, q4h/every 4 hours, before/after PO intake, using friction with toothbrush on all oral structures as tolerated, suction PRN ? Level of Assistance/Supervision: Assistive feeding only by trained staff/family PO intake only when awake/alert? Strategies/Adaptations/Assistive Equipment: Provide visual-tactile cues and hand-over hand assist as needed to ensure the following strategies are adhered to: Reduce auditory and/or visual distractions when eating Small sips and bites when eating Slow rate of intake Avoid straws Alternate intake of liquids and solids Small+frequent meals throughout day Posture/Positioning Needs: Maintain upright position at least 30 minutes after meals Avoid meals/snacks 2-3 hours prior to reclining/sleeping Sleep with head of bed elevated to reduce likelihood of nocturnal reflux, Other Plan Patient to be followed by BUSINESS PROPOSAL REP while on unit for diet tolerance/advancement. Short Term Goals: 1. Patient will tolerate safest/least restrictive diet without s/sx aspiration. IN PROGRESS: Given unable to trial anything past puree texture this date, will need to continue to follow patient for advanced trials of solids to determine least restrictive diet. At this time patient tolerates limited trials of thin liquids and puree without s/sx aspiration and given maximum verbal and tactile/[place] assist. 2. Patient/caregiver will be independent with aspiration precautions, diet modifications, and safe swallowing strategies. IN PROGRESS: Provided recommendations for increasing patient acceptance of oral care, instructions for positioning, and recommendations as below. Time spent: 45 minutes Coding Diagnoses CPT Codes EVALUATE SWALLOWING FUNCTION - [id number] ([id number])
[2022-10-21] MEDS: Aspirin 81 MG CHEW PO (14:33)
[2022-10-21] MEDS: Donepezil 5 MG TAB 10 MG PO (14:33)
[2022-10-21] MEDS: Acetaminophen 325 MG TAB PO (16:35)
[2022-10-21] MEDS: Sertraline 100 MG TAB PO (16:36)
--- NOTE | 2022-10-21 16:42 | W.PM.PROGNOT ---
Date of Service Date of service: 10/21/22 Time of Service: 16:43 Assessment and Plan Assessment and plan (1) Altered mental status: Status: Acute Assessment and plan: now at baseline (2) Dementia: Status: Chronic Assessment and plan: severe advanced continue donepezil, seroquel and lorazepam safety precautions anticipate delirium while hospitalized. (3) Community acquired pneumonia: Status: Acute Assessment and plan: on unasyn and doxycycline day 1, respiratory status stable. will downstep to augmentin speech evaluation, cleared for thins and pureed. (4) Essential hypertension: Status: Chronic Assessment and plan: not on any home meds. routine monitoring (5) Poorly controlled type 2 diabetes mellitus: Status: Chronic Assessment and plan: will hold basal insulin as not taking good PO. continue metformin check blood sugars ac/hs and cover with sliding scale coverage as needed. speech cleared her for pureed with thin liquids. will change to carb controlled only if needed. (6) Right upper limb pain: Status: Acute Assessment and plan: patient unable to provide ROS or history d/t severe advanced dementia is right hand dominant and reports not using right upper extremity, no obvious deformity. does report this behavior has been noted at other times. xray pending apap for comfort prn consider orthopedic consultation (7) Discharge planning issues: Status: Acute Assessment and plan: palliative care consult placed anticipate discharge back to home tomorrow if remains medically stable discussed with Dr Marsh. Subjective Subjective Patient reports: still having pain (right upper extremity, guarding, not using), tolerating liquids well and tolerating a regular diet (pureed); denies diarrhea or vomiting Interval history since last seen: patient confused and at baseline per . no behavioral disturbances. Exam Const General: cooperative, no acute distress, anxious and frail appearing (older than stated age) Nutritional Appearance: average body habitus Orientation: alert, awake, not oriented to place, not oriented to time and confused HENMT Head: normal to inspection and atraumatic Face and sinus: normal facial exam Neck Neck: normal visual inspection and full ROM Chest Chest: normal inspection of the chest Resp Effort & Inspection: normal respiratory effort, no audible wheezes, cough Quality of cough: wet and not labored Cardio Rate: regular rate Rhythm: regular rhythm GI Inspection: normal to inspection Neuro General: patient alert and patient awake Extrem Right upper extremity: normal to inspection; ROM limited (guarding and not using, says ouch with passive ROM and resists) Objective Last Vital Signs Temp 38.2 C H 10/21/22 16:35 Pulse 110 H 10/21/22 16:10 Resp 16 10/21/22 16:10 BP 144/73 H 10/21/22 16:10 Pulse Ox 95 10/21/22 16:10 Laboratory Results - last 24 hr 10/21/22 10/21/22 10/21/22 02:41 02:41 02:41 WBC RBC Hgb Hct MCV MCH MCHC RDW Plt Count MPV Immature Gran % Neutrophils % Lymphocytes % Monocytes % Eosinophils % Basophils % Nucleated RBC % Absolute Neutrophils Absolute Lymphocytes Absolute Monocytes Absolute Eosinophils Absolute Basophils PT INR APTT Sodium 139 Potassium 3.7 Chloride 103 Carbon Dioxide 26.7 Anion Gap 9.3 BUN 14 Creatinine 1.0 Est GFR (CKD-EPI 2020) 61.36 Glucose 187 H Calcium 9.3 Magnesium 1.8 Total Bilirubin 0.4 AST 25 ALT 37 Alkaline Phosphatase 103 Troponin I < 50 C-Reactive Protein Total Protein 7.3 Albumin 3.9 Procalcitonin TSH 12.83 H Free T4 0.99 Urine Color Urine Clarity Urine pH Ur Specific [place] Urine Protein Urine Ketones Urine Blood Urine Nitrite Urine Bilirubin Urine Urobilinogen Ur Leukocyte Esterase Urine Glucose Urine Opiates Screen Urine Methadone Screen Ur Barbiturates Screen Ur Tricyclics Screen Ur Amphetamines Screen U Benzodiazepines Scrn Urine Cocaine Screen Ur THC Screen Ethyl Alcohol < 3.0 COVID-19 Source Nasal/Nares SARS-CoV-2 (PCR) Negative Add-On Test Request 10/21/22 10/21/22 10/21/22 02:41 02:41 02:41 WBC 14.82 H RBC 4.55 Hgb 13.2 Hct 39.8 MCV 88 MCH 29.0 MCHC 33.2 RDW 12.9 Plt Count 224 MPV 10.3 Immature Gran % 3.2 Neutrophils % 86.6 Lymphocytes % 6.2 Monocytes % 3.0 Eosinophils % 0.5 Basophils % 0.5 Nucleated RBC % 0.0 Absolute Neutrophils 12.83 H Absolute Lymphocytes 0.92 L Absolute Monocytes 0.44 Absolute Eosinophils 0.07 Absolute Basophils 0.07 PT 9.7 INR 1.0 APTT 22.0 Sodium Potassium Chloride Carbon Dioxide Anion Gap BUN Creatinine Est GFR (CKD-EPI 2020) Glucose Calcium Magnesium Total Bilirubin AST ALT Alkaline Phosphatase Troponin I C-Reactive Protein Total Protein Albumin Procalcitonin TSH Free T4 Urine Color Urine Clarity Urine pH Ur Specific [place] Urine Protein Urine Ketones Urine Blood Urine Nitrite Urine Bilirubin Urine Urobilinogen Ur Leukocyte Esterase Urine Glucose Urine Opiates Screen Negative Urine Methadone Screen Negative Ur Barbiturates Screen Negative Ur Tricyclics Screen Negative Ur Amphetamines Screen Negative U Benzodiazepines Scrn Negative Urine Cocaine Screen Negative Ur THC Screen Negative Ethyl Alcohol COVID-19 Source SARS-CoV-2 (PCR) Add-On Test Request 10/21/22 10/21/22 10/21/22 02:41 02:41 02:41 WBC RBC Hgb Hct MCV MCH MCHC RDW Plt Count MPV Immature Gran % Neutrophils % Lymphocytes % Monocytes % Eosinophils % Basophils % Nucleated RBC % Absolute Neutrophils Absolute Lymphocytes Absolute Monocytes Absolute Eosinophils Absolute Basophils PT INR APTT Sodium Potassium Chloride Carbon Dioxide Anion Gap BUN Creatinine Est GFR (CKD-EPI 2020) Glucose Calcium Magnesium Total Bilirubin AST ALT Alkaline Phosphatase Troponin I C-Reactive Protein Total Protein Albumin Procalcitonin TSH Free T4 Urine Color Yellow Urine Clarity Clear Urine pH 5.5 Ur Specific [place] 1.025 Urine Protein Negative Urine Ketones Negative Urine Blood Negative Urine Nitrite Negative Urine Bilirubin Negative Urine Urobilinogen 0.2 Ur Leukocyte Esterase Negative Urine Glucose Negative Urine Opiates Screen Urine Methadone Screen Ur Barbiturates Screen Ur Tricyclics Screen Ur Amphetamines Screen U Benzodiazepines Scrn Urine Cocaine Screen Ur THC Screen Ethyl Alcohol COVID-19 Source SARS-CoV-2 (PCR) Add-On Test Request DONE DONE 10/21/22 10/21/22 10/21/22 02:41 02:41 07:30 WBC RBC Hgb Hct MCV MCH MCHC RDW Plt Count MPV Immature Gran % Neutrophils % Lymphocytes % Monocytes % Eosinophils % Basophils % Nucleated RBC % Absolute Neutrophils Absolute Lymphocytes Absolute Monocytes Absolute Eosinophils Absolute Basophils PT INR APTT Sodium Potassium Chloride Carbon Dioxide Anion Gap BUN Creatinine Est GFR (CKD-EPI 2020) Glucose Calcium Magnesium Total Bilirubin AST ALT Alkaline Phosphatase Troponin I < 50 C-Reactive Protein 0.12 Total Protein Albumin Procalcitonin < 0.1 TSH Free T4 Urine Color Urine Clarity Urine pH Ur Specific [place] Urine Protein Urine Ketones Urine Blood Urine Nitrite Urine Bilirubin Urine Urobilinogen Ur Leukocyte Esterase Urine Glucose Urine Opiates Screen Urine Methadone Screen Ur Barbiturates Screen Ur Tricyclics Screen Ur Amphetamines Screen U Benzodiazepines Scrn Urine Cocaine Screen Ur THC Screen Ethyl Alcohol COVID-19 Source SARS-CoV-2 (PCR) Add-On Test Request Time Spent with Patient Time Spent with Patient: 35-49 minutes Time was spent: preparing to see the patient(eg.review tests), obtaining and/or reviewing separately otained hiistory, ordering medications,tests, procedures, indepentently interpreting results, counseling the patient and care coordination
[2022-10-21] MEDS: diphenhydrAMINE 50 MG/ML VIAL 25 MG IVP (17:12)
[2022-10-21] MEDS: Insulin Aspart 300 UNITS/3 ML PEN SC (17:15)
--- NOTE | 2022-10-21 17:42 | INITIAL_ITS ---
- If Service Date Differs Date of service: 10/21/22 Time of Service: 17:42 Care Management Initial Assess REASON FOR HOSPITALIZATION:: Acute mental status change PAST MEDICAL HISTORY/PAST SURGICAL HISTORY:: All Active Problems. Community acquired pneumonia (Acute). Dehydration (Acute). Altered mental status (Acute). Poorly controlled type 2 diabetes mellitus (Chronic). Hyperlipidemia (Chronic 09/16/12). Essential hypertension (Chronic 05/04/13). Medical History. Acute kidney injury (nontraumatic). Dementia. Lactic acidosis. Surgical History. Dilation and curettage (~09/2009). Extraction of cataract (~04/2007) PREVIOUS FUNCTIONAL STATUS/SOCIAL/FAMILY SUPPORTS:: Lala lives in [place] with her , Hema. They have a daughter and a son who live locally. Hema is her 01/02 caregiver, as she needs microelectronics assembler care. She has respite M-F 9-4 at a caregiver's home. She is dependent for most ADLs and requires continuous supervision. CURRENT FUNCTIONAL STATUS:: Lala was resting when CM met with her. Her Hema was in the room. He discussed their home life, as he is her primary caregiver, with the support of repte care M-F 9-4. He stated that she cannot be left alone, and he supervises her continuously. He reported that per RN, there will be an MRI this morning, awaiting results to determine plan. CM will continue to follow. ADVANCE DIRECTIVES:: On File, Hema listed as HCA. Has patient been provided with info about the portal/API?: Yes Did the patient sign up for the portal?: No CODE STATUS:: Full Code INSURANCE COVERAGE / FINANCIAL ISSUES:: [facility] MCR replacement/ [place] CURRENT HOME/COMMUNITY SERVICES/EQUIPMENT:: 01/02 caregivers ( and one merchandise worker). COA case management, Carolina Monk. PRIMARY CARE PHYSICIAN:: Beatrice Richards POTENTIAL DISCHARGE NEEDS:: Evaluations for further needs, follow up appointments. PATIENT/FAMILY EDUCATION NEEDS:: Review discharge instructions and limitations, discussion of self care needs including ask me three. ANTICIPATED BARRIERS TO DISCHARGE:: none TRANSPORTATION:: Via private vehicle by her . PLAN:: Anticipate Lala will return home into the care of her , Hema. Hema will tranpsort her via private vehicle. She will have new orders for HH services to provide additional support in the home. She will follow up with her PCP and discharge plan of care. CM will continue to follow.
[2022-10-21 17:54] LABS: T3,Free 4.3 pg/mL (2.8-5.3)
[2022-10-21] MEDS: metFORMIN 500 MG TAB PO (20:19)
[2022-10-21] MEDS: Atorvastatin 20 MG TAB PO (20:19)
[2022-10-21] MEDS: QUEtiapine 50 MG TAB PO (20:19)
[2022-10-21] MEDS: LORazepam 0.5 MG TAB PO (20:19)
[2022-10-21 20:32] LABS: Legionella Ag Detection Urine Negative (Negative)
[2022-10-21] MEDS: Amoxicillin 600 MG/Clav. 42.9 MG 75 ML BTL 7.3 ML PO (20:53)
[2022-10-22 00:45] VITALS: BP 118/75; PULSE 99; RESP 16; TEMP 37.7; O2SAT 98
[2022-10-22] MEDS: QUEtiapine 50 MG TAB PO ×2 (09:40→22:36)
[2022-10-22] MEDS: Donepezil 5 MG TAB 10 MG PO (09:40)
[2022-10-22] MEDS: metFORMIN 500 MG TAB PO (09:40)
[2022-10-22] MEDS: Aspirin 81 MG CHEW PO (09:41)
[2022-10-22] MEDS: LORazepam 0.5 MG TAB PO ×2 (09:41→22:35)
[2022-10-22] MEDS: Sertraline 100 MG TAB PO (09:41)
[2022-10-22] MEDS: Amoxicillin 600 MG/Clav. 42.9 MG 75 ML BTL 7.3 ML PO (09:41)
--- NOTE | 2022-10-22 11:35 | PT.INIE ---
Date of service: 10/22/22 Time of Service: 10:08 PT Notes Visit Reasons: Acute Mental Status Change Physical Therapy Inpatient Initial Evaluation Date: 10/22/2022 Referring Doctor: Page Fernando NP PT Orders: PT CONSULT: Eval/Treat Precautions: High fall risk, safety awareness severely impaired. Standard. Activity as tolerated. Patient Profile/Admitting Diagnosis: Lala is a 66-year-old female patient with altered metal status, advancing dementia, CAP, ess HTN, and poorly controlled DM type II. PMHX: All Active Problems?(Updated 10/21/22 @ 05:45 by Lorenzo Cleary MD) Community acquired pneumonia (Acute) Dehydration (Acute) Altered mental status (Acute) Poorly controlled type 2 diabetes mellitus (Chronic) Hyperlipidemia (Chronic 09/16/12) Essential hypertension (Chronic 05/04/13) Medical History?(Updated 10/21/22 @ 05:45 by Lorenzo Cleary MD) Acute kidney injury (nontraumatic) Dementia Lactic acidosis Surgical History? Dilation and curettage (~09/2009) Extraction of cataract (~04/2007) Social History/Home Situation: Lives with in a private home with 6 steps to enter with rails on B sides. Patient is independent with ambulation and with eating, all other ADLs, the takes care of. Patient regularly went to day care. Equipment Owned/DME: None Subjective: Unwilling to and unable to stay awake. Per Nurse Yolanda, patient was given Ativan early this morning. verbalized that he cannot take care of her in this state at home. Objective: General Observation: José Miguel present during session. Patient lying in bed, sleeping. Able to be roused with tactile and verbal cueing but is unable to remain awake. Mental Status: Alert and oriented as to person, place, time, and purpose. Able to pay attention, focus, and respond appropriately. Pain: Denies Vital Signs: [place] monitored by nursing staff ROM: Unable to assess at this time Strength: Unable to assess at this time Bed Mobility/Transfers: Supine to sit maximal assist Sit to supine maximal assist Sit to stand deferred, unable and unsafe at this time Stand to sit deferred, unable and unsafe at this time Bed to bedside commode deferred, unable and unsafe at this time Bedside commode to bed deferred, unable and unsafe at this time Bed to reclining chair deferred, unable and unsafe at this time Reclining chair to bed deferred, unable and unsafe at this time Gait: Deferred, unable and unsafe at this time Balance: Static Sitting: Poor Dynamic Sitting: Unable Static Standing: Unable Dynamic Standing: Unable Special Tests: Mobility Limitations Standardized Measure [facility] AM-PAC 6 clicks Basic Mobility Inpatient Short Form: Raw Score: 6 CMS Score: 100% deficit Informed Consent/Education: was instructed in purpose of PT consult and plan of care. Agreeable to proceed with established PT POC to achieve personal goals. Assessment: Patient presents with clinical signs and symptoms consistent with current/admitting diagnoses that have resulted to mobility limitations, gait instability, generalized weakness, and overall ADL decline as demonstrated by the following impairment level findings: 1. Decreased strength to B UE/LE major muscle groups 2. Impaired sitting balance, unsafe to test standing balance at this time 3. Impaired activity tolerance 4. Altered mental status Impairments are contributing to the following functional limitations: 1. Decline in bed mobility skills 2. Decline in transfer skills 3. Difficulty with ambulation without assistive device and physical assistance 4. Increased completion time for mobility ADL performance 5. Increased risk for falls 6. Difficulty with managing steps alone safely Patient is assessed as a 27773 high complexity based on the following: History: 66-year-old female with past medical history as indicated above Examination: Demonstrable impairment in strength, balance, and mobility level with underlying impairments and functional limitations as exhibited above as well as deficit score of 100% utilizing the [facility] Mobility Inpatient Short Form Presentation: Evolving Decision Makin high complexity Goals: Goals X1 week 1. Supine-Sit independent 2. Sit-Supine independent 3. Sit-Stand independent 4. Stand-Sit stand by assist with FWW 5. Bed-Chair stand by assistwith FWW 6. Chair-Bed stand by assist with FWW 7. Stand by assist gait on level surface with use of [] for at least [] feet without report of pain nor dyspnea 8. Stand by assist stair negotiation while holding onto [] rails for at least [] steps without report of pain nor dyspnea 9. Fair static and dynamic standing balance/tolerance Plan of Care/Treatment Plan: 1-2x/day, 7 days/week x 1 week. Plan of care has been reviewed with the BLOCK BREAKER providing the service under Physical Therapy direction. Initiate Physical Therapy intervention for pain management as needed, strengthening, bed mobility, transfers, gait, stairs, balance training, and use of assistive device. DISCHARGE RECOMMENDATIONS: [] Home with no services [] [] Home with services [specify] [] Home with outpatient PT [] [] SNF for continued rehabilitation [] [] Hired Help Care [] [X] SNF versus LTC versus 24/7 care based on ability to participate and progress TREATMENT CODE/TIME: 08969 x 21 minutes beginning at 10:08 AM Thank you for the opportunity to participate in the care of this patient. Keisha Contreras PT, DPT, CLT [facility] [place], [place]
--- NOTE | 2022-10-22 13:53 | PCNE_ITS ---
Date of service: 10/22/22 Time of Service: 13:40 History of Present Illness Narrative: Lala is a 66 year old female with advanced dementia who is currently hospitalized for PNA. She has been sleeping frequently. She is unable to ambulate and is eating and drinking very little. Palliative was consulted to discuss goals of care and assist with decision making r/t next steps. Her , Hema, son, Lloyd and her sister, Kiya were present. Prior to her hospitalization, she was living at home with her , Hema, who is her primary caregiver. Her family reports that she has been showing decline over at least the last month. She was continent up until about a month ago, when she became incontinent of urine and stool. She was able to ambulate and frequently wandered at home. She does not recognize her children and grandchildren. She has been dependent on others for all care. She has been combative with personal care and agitated at times. She was able to feed herself up until this hospitalization. Discussed the decline that she has been experiencing including the recent, more rapid changes. Her family's goal is to keep her comfortable and focus on quality of life. Discussed options, her family wishes to transition to comfort focused care and for her to remain at the hospital. She has AD. Her AD state that she only wants treatment to sustain her life if she is able to communicate with family and friends, care for herself, live without pain and be conscious and aware of her surroundings. Based on this, her family agrees that her code status should be DNR/DNI. Her , Hema is her HCA. Assessment and Plan Assessment and plan (1) Dementia: Status: Chronic (2) Ambulatory dysfunction: Status: Acute (3) Community acquired pneumonia: Status: Acute (4) Altered mental status: Status: Acute (5) Poorly controlled type 2 diabetes mellitus: Status: Chronic (6) Palliative care patient: Assessment and plan: Lala is a 66 year old female with advanced dementia. She is currently hospitalized for PNA. She has been declining at home and having a more rapid decline recently. She is unable to get out of bed, follow commands and is eating very little. Her family has decided to transition to comfort focused care and will remain at [facility] through the end of her life. She is a DNR/DNI. Palliative will continue to follow. Review of Systems Narrative: Unable to participate because she has advanced dementia and she slept through the visit. PFSH All Active Problems (Updated 10/27/22 @ 15:45 by Deysi Jernigan RN) Ambulatory dysfunction (Acute) Dementia (Chronic) Discharge planning issues (Acute) Right upper limb pain (Acute) Community acquired pneumonia (Acute) Dehydration (Acute) Altered mental status (Acute) Poorly controlled type 2 diabetes mellitus (Chronic) Hyperlipidemia (Chronic 09/16/12) Essential hypertension (Chronic 05/04/13) Medical History (Updated 10/27/22 @ 15:45 by Deysi Jernigan RN) Acute kidney injury (nontraumatic) Lactic acidosis Palliative care patient Surgical History Dilation and curettage (~09/2009) Extraction of cataract (~04/2007) Family History Mother Diabetes Essential hypertension Personal history of malignant neoplasm PANCREATIC/SUSPECT COLON Heart disease Hyperlipidemia Stroke Father Diabetes Essential hypertension Hyperlipidemia Stroke Sister Diabetes Essential hypertension Heart disease Hyperlipidemia Sister Essential hypertension Hyperlipidemia Grandfather Personal history of malignant neoplasm LUNG Heart disease Grandfather Essential hypertension Heart disease Hyperlipidemia Grandmother Diabetes Essential hypertension Hyperlipidemia Grandmother Diabetes Essential hypertension Personal history of malignant neoplasm STOMACH? Hyperlipidemia Social History Smoking/Tobacco Use Status: Never Smoking risk assessment performed?: Yes Alcohol Intake: never Drug use: Never Do you feel safe in your relationship?: Yes History History Para 2 Hx # Term Pregnancies Multiple births Hx # Pregnancies Ectopic pregnancies AB induced Hx Number of Living Children AB spontaneous Exam Narrative Exam Narrative: General: middle aged female, laying in bed, she slept through most of the visit but awakened and smiled briefly and went right back to sleep. HEENT: normocephalic, atraumatic, EOMI, mmm. Neck: supple, no JVD. respiratory: respirations appear even and unlabored. Extremities: moves all 4 extremities freely, no edema. Results Last Vital Signs Temp 37.7 C H 10/22/22 00:45 Pulse 99 H 10/22/22 00:45 Resp 16 10/22/22 00:45 BP 118/75 10/22/22 00:45 Pulse Ox 98 04/13/23 00:45 Labs 10/21/22 02:41 10/21/22 02:41 Labs: Laboratory Results - last 24 hr 10/21/22 10/21/22 02:41 02:41 Free T3 pg/mL 4.3 Urine Legionella Ag Negative
--- NOTE | 2022-10-22 15:04 | W.PM.PROGNOT ---
Date of Service Date of service: 10/22/22 Time of Service: 15:04 Assessment and Plan Assessment and plan (1) Dementia: Status: Chronic Assessment and plan: severe advanced and rapidsly deteriorating. seen by palliative. with shared decision making, opts for comfort care as she not taking po or following commands or allowing care. comfort care orders placed (2) Community acquired pneumonia: Status: Acute Assessment and plan: no respiratory distress. treatment for pneumonia will be discontinued. (3) Poorly controlled type 2 diabetes mellitus: Status: Chronic Assessment and plan: stop meds and monitoring comfort care only (4) Discharge planning issues: Status: Acute Assessment and plan: palliative care following will remain here for end of life care ocean lifeguard specialist consult placed. comfort orders placed. will titrate medication as needed for symptoms discussed with Dr Marsh. Subjective Subjective Patient reports: afebrile; denies tolerating liquids well, tolerating a regular diet or shortness of breath Interval history since last seen: patient not able to cooperate with PT evaluation, not following commands, resisting care and movements. spit out bites at dinner last night, minimal intake today. Exam Const General: no acute distress and frail appearing (older than stated age) Nutritional Appearance: average body habitus Orientation: not oriented to place, not oriented to time and confused Limitations: other limitations (severe advanced dementia, resisting care, unable to redirect) HENMT Head: normal to inspection and atraumatic Face and sinus: normal facial exam Neck Neck: normal visual inspection and full ROM Chest Chest: normal inspection of the chest Resp Effort & Inspection: normal respiratory effort, no audible wheezes and not labored Cardio Rate: regular rate Rhythm: regular rhythm GI Inspection: normal to inspection Objective Last Vital Signs Temp 37.7 C H 10/22/22 00:45 Pulse 99 H 10/22/22 00:45 Resp 16 10/22/22 00:45 BP 118/75 10/22/22 00:45 Pulse Ox 98 10/22/22 00:45 Laboratory Results - last 24 hr 10/21/22 10/21/22 02:41 02:41 Free T3 pg/mL 4.3 Urine Legionella Ag Negative Time Spent with Patient Time Spent with Patient: 35-49 minutes Time was spent: preparing to see the patient(eg.review tests), ordering medications,tests, procedures, referring, communicating with other health assisted living care manager (palliative care), counseling the patient () and care coordination
[2022-10-22] MEDS: diphenhydrAMINE Elixir 25 MG/10 ML CUP PO (15:48)
[2022-10-22] MEDS: predniSONE 20 MG TAB 40 MG PO (16:55)
--- NOTE | 2022-10-22 16:56 | PDOC.CMPRO ---
- If Service Date Differs Date of service: 10/22/22 Time of Service: 16:56 Care Management Progress Note S/O: Lala and her family met with Palliative care today. She has not been eating well during this admission, and has been declining at home. The family decided to transition Lala to comfort measures, and will remain at [facility] for end of life care. CM will continue to support Lala and her family through this difficult time. A: Lala is a 66 year old female admitted to [facility] on 10/21/22 with acute mental status change. P: Lala will remain at [facility] for end of life care. Her family have been visiting regularly. CM will support the family with final arrangements, and will continue to follow.
[2022-10-22] MEDS: Hydrocortisone 1% CR 30 GM TUBE TP (17:49)
[2022-10-23 06:14] LABS: Platelet Count 203 10^3/uL (130-400)
[2022-10-23] MEDS: QUEtiapine 50 MG TAB PO ×2 (10:20→19:51)
[2022-10-23] MEDS: Sertraline 100 MG TAB PO (10:20)
[2022-10-23] MEDS: LORazepam 0.5 MG TAB PO ×2 (10:20→19:51)
--- NOTE | 2022-10-23 10:39 | PDOC.CMPRO ---
- If Service Date Differs Date of service: 10/23/22 Time of Service: 10:39 Care Management Progress Note S/O: Lala was resting comfortably when CM met with her and her , José Miguel. Occasionally during the conversation, Lala would wake up and smile or laugh, her speech is inaudible. José Miguel stated that he met with Palliative again today, who is helping to manage her comfort while she is at [facility], for end of life care. He reported that he is very happy with the care Lala is receiving at [facility]. CM will continue to follow. A: Lala is a 66 year old female admitted to [facility] on 10/21/22 with acute mental status change. P: Lala will remain at [facility] for end of life care. Her family have been visiting regularly. CM will support the family with final arrangements, and will continue to follow.
--- NOTE | 2022-10-23 13:00 | PHA.REVIEW2 ---
Pharmacy Admission Review - Admission Clinical Review (Last Reviewed 10/22/22 @ 14:06 by Esmer Godoy NP) Palliative care patient (Acute) Ambulatory dysfunction (Acute) Discharge planning issues (Acute) Right upper limb pain (Acute) Community acquired pneumonia (Acute) Altered mental status (Acute) apple Allergy (Severe, Unverified 10/21/22 04:32) Anaphylaxsis lisinopril Adverse Reaction (Unverified 10/21/22 04:32) cough Resuscitation Status DNR/DNI Height 5 ft 3 in Weight 55.3 kg - Renal Dosing Renal Dosing: BUN 14 mg/dL (7-18) 10/21/22 02:41 Creatinine 1.0 mg/dL (0.55-1.02) 10/21/22 02:41 Medications needing adjustments: Reviewed (Crcl ~46.75 mL/min current meds okay) - Anticoagulation Anticoagulation: Hgb 13.2 g/dL (11.2-15.7) 10/21/22 02:41 Hct 39.8 % (36.0-46.0) 10/21/22 02:41 Plt Count 203 10^3/uL (130-400) 10/23/22 05:55 INR 1.0 (0.9-1.1) 10/21/22 02:41 Creatinine 1.0 mg/dL (0.55-1.02) 10/21/22 02:41 DVT Prophylaxis: N/A Therapeutic Anticoagulation: N/A - Opiate Usage Evaluate Pain Scale/Pains Meds: Reviewed Scheduled Bowel Reg ordered if on Opiates?: No - Relevant Labs Sodium 139 mmol/L (136-145) 10/21/22 02:41 Potassium 3.7 mmol/L (3.5-5.1) 10/21/22 02:41 Chloride 103 mmol/L (98-107) 10/21/22 02:41 Magnesium 1.8 mg/dL (1.8-2.4) 10/21/22 02:41 C-Reactive Protein 0.12 mg/dL (0.0-0.3) 10/21/22 02:41 Electrolytes, C-Reactive P, ESR: Reviewed - DM Control DM Control: Glucose 187 mg/dL (74-106) H 10/21/22 02:41 DM Control: Reviewed (meds discontinued when patient was transitioned to comfort measures) - Cardiac Review Cardiac Review: Troponin I < 50 ng/L (<or=60) 10/21/22 07:30 BP, HR, EF%: Reviewed - Qtc Review QTc: Reviewed (QTc was 432 on admission) - IV to PO Switch IV Medications: Reviewed - Home Meds Home Med List reviewed: Reviewed Relevent Home Meds Not ordered & why?: multiple home meds were discontinued when the patient was transitioned to comfort measures - Current meds Current Medication Order Review: Reviewed
--- NOTE | 2022-10-23 14:20 | PCPN_ITS ---
Date of service: 10/23/22 Time of Service: 14:21 Assessment and Plan Assessment and plan (1) Dementia: Status: Chronic (2) Ambulatory dysfunction: Status: Acute (3) Community acquired pneumonia: Status: Acute (4) Altered mental status: Status: Acute (5) Poorly controlled type 2 diabetes mellitus: Status: Chronic (6) Palliative care patient: Assessment and plan: Lala is a 66 year old female with advanced dementia. She is currently hospitalized for PNA. She has been declining at home and having a more rapid decline recently. She is unable to get out of bed, follow commands and is eating very little. Her family reports that she is taking bites of pudding and ice cream. She was transitioned to comfort focused care yesterday. She is receiving PO morphine prior to care/position changes. She will be started on fentanyl patch 12 mcg/hr. Her family did not feel ready for pump/drip. She is a DNR/DNI. Palliative will continue to follow. Subjective Subjective Interval history since last seen: Lala transitioned to comfort-focused care yesterday. She was seen for follow up today. She had several family members present for the visit. Her 2 children and granddaughter, , 2 sisters and their significant others were all present. Her family reports that she has been comfortable except for when she is being repositioned and receiving personal care. She has been crying out when she is moved. Discussed giving morphine prior to care, which her family agrees to. Discussed the option of transition to a morphine pump depending on her needs. Her family wishes to hold off on pump for now. Page Fernando, Hospitalist WIND PLANT MANAGER spoke with the family about adding a low dose fentanyl patch and they agree with this plan. She has been taking a few bites of pudding and ice cream. Her family is comfortable with the plan and grateful for the care that she is receiving. Her sister, Kiya reports that their father in the same room that she is in. Exam Narrative Exam Narrative: General: very pleasant, middle aged female, laying in bed, sleeping but opened her eyes briefly a couple of times. She mumbled some words. She appears comfortable. HEENT: normocephalic, atraumatic, EOMI, mmm. Neck: supple, no JVD. Respiratory: respirations appear even and unlabored. Extremities: moves all 4 extremities freely. Objective Last Vital Signs Temp 37.7 C H 10/22/22 00:45 Pulse 99 H 10/22/22 00:45 Resp 16 10/22/22 00:45 BP 118/75 10/22/22 00:45 Pulse Ox 98 10/22/22 00:45 Laboratory Results - last 24 hr 10/23/22 05:55 Plt Count 203
[2022-10-23 15:34] LABS: Streptococcus Pneumoniae Ag, U Negative (Negative)
[2022-10-23] MEDS: fentaNYL 12 MCG PATCH TD (17:17)
[2022-10-23] MEDS: diphenhydrAMINE Elixir 25 MG/10 ML CUP PO (17:27)
[2022-10-24] MEDS: LORazepam 0.5 MG TAB PO (07:43)
[2022-10-24] MEDS: QUEtiapine 50 MG TAB PO (07:43)
[2022-10-24] MEDS: Sertraline 100 MG TAB PO (07:44)
[2022-10-24] MEDS: LORazepam 2 MG/1 ML Oral Concentrate 1 MG PO (11:09)
--- NOTE | 2022-10-24 11:57 | W.PM.PROGNOT ---
Date of Service Date of service: 10/24/22 Time of Service: 11:57 Assessment and Plan Assessment and plan (1) Dementia: Status: Chronic Assessment and plan: Comfort care Unresponsive (2) Community acquired pneumonia: Status: Acute Assessment and plan: no respiratory distress. No treatment - comfort care Dilaudid CADD pump; titrate for pain/SOB (3) Poorly controlled type 2 diabetes mellitus: Status: Chronic Assessment and plan: No meds, comfort care only (4) Discharge planning issues: Status: Acute Assessment and plan: palliative care following will remain here for end of life care marketing development specialist consult placed. Dilaudid CADD pump discussed with Dr Marsh. Subjective Subjective Patient reports: no new complaints and pain is less Interval history since last seen: Unresponsive Exam Const General: no acute distress and frail appearing (older than stated age) Orientation: obtunded (unresponsive ) [facility] Head: normal to inspection and atraumatic Face and sinus: normal facial exam Neck Neck: normal visual inspection Chest Chest: normal inspection of the chest Resp Effort & Inspection: normal respiratory effort, no audible wheezes and not labored Cardio Rate: regular rate Rhythm: regular rhythm GI Inspection: normal to inspection Objective Last Vital Signs Temp 37.7 C H 10/22/22 00:45 Pulse 99 H 10/22/22 00:45 Resp 16 10/22/22 00:45 BP 118/75 10/22/22 00:45 Pulse Ox 98 10/22/22 00:45 Laboratory Results - last 24 hr 10/21/22 02:41 Ur Strep pneumoniae Ag Negative Time Spent with Patient Time Spent with Patient: 25-34 minutes Time was spent: preparing to see the patient(eg.review tests), ordering medications,tests, procedures, referring, communicating with other health career development coordinator/teacher, indepentently interpreting results, counseling the patient and care coordination
[2022-10-24] MEDS: diphenhydrAMINE Elixir 25 MG/10 ML CUP PO (12:35)
[2022-10-24] MEDS: methylPREDNISolone SUCC 125 MG VIAL IM (13:08)
[2022-10-24] MEDS: diphenhydrAMINE 50 MG/ML VIAL 25 MG IM (13:08)
[2022-10-24] MEDS: Fentanyl Patch Removal 1 EACH TP (13:09)
[2022-10-24 14:50] VITALS: PULSE 92; RESP 8; TEMP 36.2; O2SAT 87
[2022-10-24] MEDS: HYDROmorphone 200 MG in CADD PUMP CASSETTE 1 EACH, Normal Saline 80 ML SC INF (15:33)
[2022-10-24 17:25] VITALS: PULSE 92; RESP 8; O2SAT 87
[2022-10-24 20:40] VITALS: PULSE 116; RESP 5; O2SAT 58
[2022-10-24 22:32] VITALS: PULSE 116; RESP 5
[2022-10-25] MEDS: Scopolamine 1 MG/3 DAYS PATCH TD (02:43)
[2022-10-25 04:19] VITALS: RESP 8
--- NOTE | 2022-10-25 09:02 | PGE_ITS ---
Date of Service Date of service: 10/25/22 Time of Service: 09:02 Assessment and Plan Assessment and plan (1) Dementia: Status: Chronic Assessment and plan: Comfort care Unresponsive Dilaudid CADD pump contnues at 1 mg/h (2) Community acquired pneumonia: Status: Acute Assessment and plan: no respiratory distress. No treatment - comfort care Dilaudid CADD pump; titrate for pain/SOB - continued @ 1 mg/h (3) Poorly controlled type 2 diabetes mellitus: Status: Chronic Assessment and plan: No meds, comfort care only (4) Discharge planning issues: Status: Acute Assessment and plan: palliative care following will remain here for end of life care qual field manager consult placed. discussed with Dr Cleary Subjective Subjective Interval history since last seen: Unresponsive, family at bedside Exam Const General: no acute distress and frail appearing (older than stated age) Orientation: obtunded (unresponsive ) [facility] Head: normal to inspection and atraumatic Face and sinus: normal facial exam Neck Neck: normal visual inspection Chest Chest: normal inspection of the chest Resp Effort & Inspection: not labored Other: Breathing at about 4 breaths/min - shes was rattling earlier in the day, glycopyrolate, atropine, scope patch - she did dry up considerably. Her color is interiano. She has apnea for about 60-80 seconds. Cardio Rate: regular rate Rhythm: regular rhythm GI Inspection: normal to inspection Objective Last Vital Signs Temp 36.2 C L 10/24/22 14:50 Pulse 116 H 10/24/22 22:32 Resp 8 L 10/25/22 04:19 BP 118/75 10/22/22 00:45 Pulse Ox 58 L 10/24/22 20:40 Time Spent with Patient Time Spent with Patient: 35-49 minutes Time was spent: ordering medications,tests, procedures and care coordination
[2022-10-25] MEDS: Hydrocortisone 1% CR 30 GM TUBE TP (09:35)
[2022-10-25] MEDS: Glycopyrrolate 0.2 MG/1 ML VIAL IM (09:35)
[2022-10-25 12:06] VITALS: TEMP 38
[2022-10-25] MEDS: Acetaminophen 650 MG SUPP PR ×2 (12:06→18:23)
[2022-10-25 13:06] VITALS: TEMP 37.8
[2022-10-25 13:45] VITALS: RESP 8
[2022-10-25 18:23] VITALS: TEMP 38.7
[2022-10-25 18:25] VITALS: RESP 5
[2022-10-26] MEDS: LORazepam 2 MG/ML VIAL 1 MG IV/SC ×4 (02:26→17:10)
[2022-10-26 03:17] VITALS: RESP 6
[2022-10-26 12:08] VITALS: TEMP 40
[2022-10-26] MEDS: Acetaminophen 650 MG SUPP PR ×3 (12:08→21:24)
--- NOTE | 2022-10-26 12:08 | CMPROGNOTE_ITS ---
- If Service Date Differs Date of service: 10/26/22 Time of Service: 12:08 Care Management Progress Note S/O: Lala was resting comfortably when CM met with her. Her , José Miguel was by her side. José Miguel stated that he is doing ok, but expressed how difficult it has been to watch Lala during these last few days. He reminisced on their fifty years together, and how he wants things to return to how they used to be. CM provided space and support for him to share his feelings and emotions. Lala has had a lot of visitors, which has been helpful to José Miguel, to have people supporting Lala and himself during this difficult time. José Miguel stated that he anticipates that he will use [facility] in [place] for final arrangements. CM stated that hospital staff will contact [facility] when the time comes, who will then reach out to José Miguel. CM will continue to follow. A: Lala is a 66 year old female admitted to [facility] on 10/21/22 with acute mental status change. P: Lala will remain at [facility] for end of life care. Her family have been visiting regularly. José Miguel has decided to use [facility] for final arrangements. CM will continue to support Lala and her family during this difficult time.
[2022-10-26 16:37] VITALS: TEMP 39.7
--- NOTE | 2022-10-26 18:28 | W.PM.PROGNOT ---
Date of Service Date of service: 10/26/22 Time of Service: 18:28 Assessment and Plan Assessment and plan (1) Dementia: Status: Chronic Assessment and plan: Comfort care Unresponsive Dilaudid CADD pump continues at 2 mg/h (2) Community acquired pneumonia: Status: Acute Assessment and plan: no respiratory distress. No treatment - comfort care Dilaudid CADD pump; titrate for pain/SOB - continued @ 2 mg/h (3) Poorly controlled type 2 diabetes mellitus: Status: Chronic Assessment and plan: No meds, comfort care only (4) Discharge planning issues: Status: Acute Assessment and plan: palliative care following will remain here for end of life care ccie consult placed. discussed with Dr Cleary Subjective Subjective Interval history since last seen: Unresponsive - family at bedside Exam Const General: no acute distress and frail appearing (older than stated age) Orientation: obtunded (unresponsive ) [facility] Head: normal to inspection and atraumatic Face and sinus: normal facial exam Neck Neck: normal visual inspection Chest Chest: normal inspection of the chest Resp Effort & Inspection: not labored Other: Breathing at about 4-8 breaths/min, no rattle, appears comfortable, dilaudid cadd pump infusing sc without issue. Setting 2 mg/h and 1 mg bolus with parameters in order Cardio Rate: regular rate Rhythm: regular rhythm GI Inspection: normal to inspection Objective Last Vital Signs Temp 39.7 C H 10/26/22 16:37 Pulse 116 H 10/24/22 22:32 Resp 6 L 10/26/22 03:17 BP 118/75 10/22/22 00:45 Pulse Ox 58 L 10/24/22 20:40 Time Spent with Patient Time Spent with Patient: 25-34 minutes Time was spent: preparing to see the patient(eg.review tests), ordering medications,tests, procedures and care coordination
[2022-10-26 21:24] VITALS: TEMP 41.2
--- NOTE | 2022-10-26 22:15 | NUR.NOTE ---
patients family came out to nurses station stating that patient hasn't breathed in about 5 minutes listened to apical pulse for 1 minute and did not hear any heart tones. CC to follow up in 5 minutes.
--- NOTE | 2022-10-26 22:35 | NUR.NOTE ---
went in to patients room to explain to family that if they want to pack up any of her belongings they can to take them home. patient did not have any personal items on her. also called José Miguel to let him know the patient had passed
--- NOTE | 2022-10-28 17:34 | PT.INDS ---
PT Notes Visit Reasons: Acute Mental Status Change Physical Therapy Inpatient Discharge Summary Date: 10/22/2022 Referring Doctor:? Page Fernadno,? VIDEO GAME REPAIR TECHNICIAN PT Orders: PT CONSULT: Eval/Treat Precautions: High fall risk,? safety awareness severely impaired. Standard. Activity as tolerated. Patient Profile/Admitting Diagnosis:? Lala is a 66-year-old female patient with altered metal status,? advancing dementia,? CAP,? ess HTN,? and poorly controlled DM type II. PMHX: All Active Problems?(Updated 10/21/22 @ 05:45 by Lorenzo Cleary MD) Community acquired pneumonia (Acute) Dehydration (Acute) Altered mental status (Acute) Poorly controlled type 2 diabetes mellitus (Chronic) Hyperlipidemia (Chronic 09/16/12) Essential hypertension (Chronic 05/04/13) Medical History?(Updated 10/21/22 @ 05:45 by Lorenzo Cleary MD) Acute kidney injury (nontraumatic) Dementia Lactic acidosis Surgical History? Dilation and curettage (~09/2009) Extraction of cataract (~04/2007) Social History/Home Situation: Lives with in a private home with 6 steps to enter with rails on B sides.? Patient is independent with ambulation and with eating,? all other ADLs, the takes care of.? Patient regularly went to day care. Equipment Owned/DME: None Subjective: N/A. Objective: General Observation: N/A. Mental Status: N/A. Pain: N/A. Vital Signs: N/A. ROM: Unable to assess at this time Strength: Unable to assess at this time Bed Mobility/Transfers: Supine to sit maximal assist Sit to supine maximal assist Sit to stand deferred,? unable and unsafe at this time Stand to sit deferred,? unable and unsafe at this time Bed to bedside commode deferred,? unable and unsafe at this time Bedside commode to bed deferred,? unable and unsafe at this time Bed to reclining chair deferred,? unable and unsafe at this time Reclining chair to bed deferred,? unable and unsafe at this time Gait: Deferred,? unable and unsafe at this time Balance: Static Sitting: Poor Dynamic Sitting: Unable Static Standing: Unable Dynamic Standing: Unable Special Tests: Mobility Limitations Standardized Measure [facility]-PAC 6 clicks Basic Mobility Inpatient Short Form: Raw Score: 6? CMS Score: 100% deficit? ? ? Assessment: Patient now on comfort measures per family request. PT services discontinued as of today. Patient presents with clinical signs and symptoms consistent with current/admitting diagnoses that have resulted to mobility limitations, gait instability, generalized weakness, and overall ADL decline as demonstrated by the following impairment level findings: 1.? Decreased strength to B UE/LE major muscle groups 2.? Impaired sitting balance,? unsafe to test standing balance at this time 3.? Impaired activity tolerance 4.? Altered mental status Impairments are contributing to the following functional limitations: 1.? Decline in bed mobility skills 2.? Decline in transfer skills 3.? Difficulty with ambulation without assistive device and physical assistance 4.? Increased completion time for mobility ADL performance 5.? Increased risk for falls 6.? Difficulty with managing steps alone safely Goals: Goals X1 week 1. Supine-Sit independent NOT MET, DEFERRED 2. Sit-Supine independent NOT MET, DEFERRED 3. Sit-Stand independent NOT MET, DEFERRED 4. Stand-Sit stand by assist with FWW NOT MET, DEFERRED 5. Bed-Chair stand by assistwith FWW NOT MET, DEFERRED 6. Chair-Bed stand by assist with FWW NOT MET, DEFERRED 7. Stand by assist gait on level surface with use of [] for at least [] feet without report of pain nor dyspnea NOT MET, DEFERRED 8. Stand by assist stair negotiation while holding onto [] rails for at least [] steps without report of pain nor dyspnea NOT MET, DEFERRED 9. Fair static and dynamic standing balance/tolerance NOT MET, DEFERRED DISCHARGE RECOMMENDATIONS: [] ? Home with no services [] [] ? Home with services [specify] [] ? Home with outpatient PT [] [] ? SNF for continued rehabilitation [] [] ? [facility] [] [X] ? SNF versus LTC versus 01/02 care based on ability to participate and progress TREATMENT CODE/TIME: RADHA Thank you for the opportunity to participate in the care of this patient. Keisha Contreras PT, DPT, CLT [facility] [place], [place]
--- NOTE | 2022-11-02 11:57 | EXPE_ITS ---
Date of service: 11/02/22 Time of Service: 11:58 Discharge Plan Disposition Patient Disposition: Discharge Details Reason For Visit: Acute Mental Status Change Admit Date/Time: 10/22/22 15:12 Admit Provider: Aaron Marsh Attending Provider: Aaron Marsh Primary Care Provider: Beatrice Richards Hospital Course Hospital Course: Patient is a 66 year old female with advanced dementia, admitted 10/21/22 with declining mental status, found to be due to pneumonia. She was initially treated with combination of Unasyn and Doxycycline. However by hospital day 2 she was noted to be having further decline and family, in consultation with Palliative Care team, opted to transition to comfort care. Antibiotics were discontinued and patient was treated with at first oral and transdermal opiates, eventually transitioned to Dilaudid infusion with good effect. Patient peacefully on hospital day 5 (10/26/22) at 22:20. Discharge Data Discharge Date/Time-TO BE ENTERED AT DEPARTURE: 10/26/22 22:20 Discharge Sum: Prov Provider Consults: 10/21/22 16:40 Palliative Care Consult [CONS] Routine Consultation Status:: Contact made by Clarification:: Manage/follow per spec. Reason for consult:: goals of care 10/22/22 14:58 Assurance Analyst Consult [CONS] Routine Consultation Status:: Follow-up needed Clarification:: Manage/follow per spec. Reason for consult:: end of life Discharge Sum: Diag PCOD Cause of : Pneumonia Contributing Factors (1) Dementia: (2) Ambulatory dysfunction: (3) Community acquired pneumonia: (4) Altered mental status: (5) Poorly controlled type 2 diabetes mellitus: (6) Palliative care patient: Discharge Sum: Summary Summary Details: please see Hospital Course
== END 2022-10-26 22:20 | disposition expired | DRG 884 ==
LOC: ER 04:54 → MS 05:24
PROVIDERS: Internal Medicine; Admitting Provider Family Medicine; Emergency Provider Emergency Medicine; PCP Family Medicine; Visit Provider Family Medicine
DX: F03.90 Unspecified dementia, unspecified severity, without behavioral disturbance, psychotic disturbance, mood disturbance, and anxiety (principal); J18.9 Pneumonia, unspecified organism; R47.01 Aphasia; E11.65 Type 2 diabetes mellitus with hyperglycemia; I10 Essential (primary) hypertension; M79.601 Pain in right arm; Z51.5 Encounter for palliative care; Z79.4 Long term (current) use of insulin; R41.82 Altered mental status, unspecified; E78.5 Hyperlipidemia, unspecified; R29.715 NIHSS score 15; D72.829 Elevated white blood cell count, unspecified; E86.0 Dehydration
CPT/HCPCS: 36415; 36416; 70496; 70498; 80053; 80307; 82962; 84145; 87449; 87635; 92610; 93005; 96374; 97163; 99285; J1650; 70551; 71045; 73030; 73080; 73110; 80320; 81003; 83735; 84439; 84443; 84481; 84484; 85025; 85049; 85610; 85730; 86140; 87899; 93010; 99223; 99232; 99233; G0378; J0295; J1170; J1200; J2060; J2405; J2930; J3490; J7512